=== PATIENT | male | born 1965 | race Caucasian/White ===

== ENCOUNTER 2023-06-23 10:15 | Emergency (ER) | payer OTHER, SELFPAY ==
[2023-06-23 10:19] VITALS: BP 175/100; PULSE 69; RESP 18; TEMP 36.4; O2SAT 98; BMI 34.0
--- NOTE | 2023-06-23 10:20 | ED.BACK1 ---
HPI - Back Pain/Injury General Chief Complaint: Back Pain/Injury Stated Complaint: BACK PAIN Time Seen by Provider: 06/23/23 10:19 History of Present Illness HPI Narrative: Patient presents emergency department complaining of left flank pain.She states the pain started yesterday. He became slightly nauseated but has not been vomiting. Pain worsened this morning. He denies any hematuria, dysuria. He has a history of kidney stone but states this has not felt like it. Last time he passed a stone was 5 years ago. He denies any abdominal pain, diarrhea, constipation. Patient denies any chest pain, shortness of breath.He denies any trauma. He denies any paresthesias, or weakness. Related Data Home Medications Medication Instructions Recorded Confirmed testosterone cypionate 200 mg/mL 200 mg IM .[id number] 06/23/23 06/23/23 intramuscular oil Previous Rx's Medication Instructions Recorded hydrocodone 5 mg-acetaminophen 325 1 tab PO Q6H PRN pain 5 days #20 06/23/23 mg tablet tabs ondansetron HCl 4 mg tablet 4 mg PO Q6H PRN nausea and 06/23/23 vomiting #10 tabs tamsulosin 0.4 mg capsule (Flomax) 0.4 mg PO DAILY #7 caps 06/23/23 Allergies Allergy/AdvReac Type Severity Reaction Status Date / Time No Known Drug Allergies Allergy Verified 06/23/23 10:21 Review of Systems ROS Status of ROS 10 or more systems reviewed and unremarkable except as noted in history and below Exam Narrative Exam Narrative: Nurses notes and vital signs reviewed and patient is not hypoxic. General: Nontoxic, Well-appearing and in no apparent distress. Skin: Warm, dry, no pallor noted. No Rash Head: Normocephalic, atraumatic. Neck: Supple, non-tender. Eye: Pupils are equal, round and EOMI. No scleral icterus. Ears, Nose, Mouth, and Throat: TM clear, no posterior oropharynx erythema or nasal mucosal hypertrophy, uvula is mid-line Oral mucosa is moist Cardiovascular: Regular Rate and Rhythm without murmur, gallop or rub. Respiratory: No accessory muscle use or respiratory distress. Lungs are clear to auscultation, no wheezing, rales or rhonchi Chest Wall: no tenderness Back: No midline thoracic or lumbar vertebral tenderness. No CVA tenderness Musculoskeletal: normal ROM, no calf or popliteal tenderness, no lower extremity edema/swelling GI: Abdomen is soft, non-distended. Normal bowel sounds. No masses appreciated. No tenderness to palpation. No rebound, guarding, or rigidity noted. Neurological: A&O x4. No cranial nerve dysfunction observed. No truncal ataxia. Moves all extremities. Sensation intact. Psychiatric: Cooperative and interactive. Normal mood and affect. Constitutional Vital Signs, click to edit/add: Last Vital Signs Temp 97.6 F 06/23/23 10:19 Pulse 69 06/23/23 10:19 Resp 18 06/23/23 10:19 BP 175/100 H 06/23/23 10:19 Pulse Ox 98 06/23/23 10:19 Course Vital Signs Vital signs: Vital Signs Temperature 97.6 F 06/23/23 10:19 Pulse Rate 69 06/23/23 10:19 Respiratory Rate 18 06/23/23 10:19 Blood Pressure 175/100 H 06/23/23 10:19 Pulse Oximetry 98 06/23/23 10:19 Temperature 97.6 F 06/23/23 10:19 Pulse Rate 69 06/23/23 10:19 Respiratory Rate 18 06/23/23 10:19 Blood Pressure 175/100 H 06/23/23 10:19 Pulse Oximetry 98 06/23/23 10:19 MDM - Back Pain/Injury MDM Narrative Medical decision making narrative: Patient afebrile and without dysuria. Labs studies were done and he has leukocytosis. Her and does not show any signs of infection. Patient was given 1 L normal saline, Toradol, and Zofran IV. All his symptoms resolved. His pain is well tolerated his tolerating by mouth. All results were discussed with patient. She will follow up with primary care doctor and a neurologist. Patient will strain the urine. He'll take Zofran, Flomax, and [place]. His advised develops any fever or is not tolerating by mouth, prednisone will control his to return to the emergency department. At this time the patient is without objective evidence of an acute process requiring hospitalization or inpatient management. The patient has remained hemodynamically stable. No additional indication for emergent studies at this time. I answered all questions. Discussed discharge instructions including standard anticipatory guidance and what should prompt a return to the emergency department, including if they get worse are not getting better or develops any new or concerning symptoms. I've given them specific time frame in which to follow-up, and who to follow-up with. The patient demonstrates understanding. Patient is nontoxic and stable for discharge with outpatient follow-up. This note was created with the assistance of a speech recognition program. Although the intention is to generate documents that actually reflects the content of the visit, no guarantees can be provided that every mistake has been identified and corrected by editing. Differential Diagnosis Differential diagnosis: Likely lumbar radiculopathy, renal colic and pyelonephritis Lab Data Attestation: I reviewed the patient's lab results. Labs: Lab Results 06/23/23 06/23/23 Range/Units 10:24 10:43 WBC 19.6 H (4.0-11.0) 10^3/uL RBC 5.66 (4.70-6.10) 10^6/uL Hgb 17.0 (14.0-18.0) g/dL Hct 51.3 (42.0-54.0) % MCV 90.6 (80.0-94.0) fL MCH 30.0 (25.9-34.0) pg MCHC 33.1 (29.9-35.2) g/dL RDW 12.2 (11.0-15.0) % Plt Count 318 (150-450) 10^3/uL MPV 9.3 L (9.5-13.5) fL Neut % (Auto) 82.5 H (43.0-75.0) % Lymph % (Auto) 6.6 L (20.5-60.0) % [place] % (Auto) 9.3 (1.7-12.0) % Eos % (Auto) 0.1 L (0.9-7.0) % Baso % (Auto) 0.4 (0.2-2.0) % Neut # (Auto) 16.2 H (1.4-6.5) 10^3/uL Lymph # (Auto) 1.3 (1.2-3.8) 10^3/uL [place] # (Auto) 1.8 H (0.3-0.8) 10^3/uL Eos # (Auto) 0.0 (0.0-0.7) 10^3/uL Baso # (Auto) 0.1 (0.0-0.1) 10^3/uL Abs Immat Gran (auto) 0.22 H (0.00-0.03) 10^3/uL Imm/Tot Granulo (auto) 1.1 H (0.0-0.5) % Sodium 137 (136-145) mmol/L Potassium 4.3 (3.5-5.1) mmol/L Chloride 102 (98-107) mmol/L Carbon Dioxide 26.5 (21.0-32.0) mmol/L Anion Gap 12.8 BUN 16.0 (7.0-18.0) mg/dL Creatinine 1.33 H (0.70-1.30) mg/dL Est GFR ( Amer) >60 (>=60) Est GFR (Non-Af Amer) 56 L (>=60) BUN/Creatinine Ratio 12.0 Glucose 135 H (74-106) mg/dL Lactate 1.1 (0.4-2.0) mmol/L Calcium 9.2 (8.5-10.1) mg/dL Total Bilirubin 0.9 (0.2-1.0) mg/dL AST 24 (15-37) U/L ALT 37 (16-63) U/L Alkaline Phosphatase 76 (46-116) U/L Total Protein 7.8 (6.4-8.2) g/dL Albumin 4.1 (3.4-5.0) g/dL Globulin 3.7 g/dL Albumin/Globulin Ratio 1.1 Urine Color Yellow (YELLOW) Urine Clarity Clear (CLEAR) Urine pH 5.0 (5.0-9.0) Ur Specific [place] >=1.030 A (1.005-1.025) Urine Protein Trace (NEG/TRACE) mg/dL Urine Glucose (UA) Negative (NEGATIVE) mg/dL Urine Ketones Negative (NEGATIVE) mg/dL Urine Occult Blood Small A (NEGATIVE) Urine Nitrite Negative (NEGATIVE) Urine Bilirubin Negative (NEGATIVE) Urine Urobilinogen 0.2 (0.2-1.0) EU/dL Ur Leukocyte Esterase Negative (NEGATIVE) Urine RBC 0-2 (0-2) #/HPF Urine WBC None seen (NONE SEEN) #/HPF Ur Squamous Epith Cells None seen (NONE/RARE) #/LPF Urine Crystals None seen (None Seen) #/HPF Urine Bacteria None seen (NONE SEEN) #/HPF Urine Casts None seen (NONE SEEN) #/LPF Urine Mucus Small A (NONE SEEN) Ur Culture Indicated? No Discharge Plan Discharge Chief Complaint: Back Pain/Injury Clinical Impression: Ureterolithiasis Patient Disposition: Home, Self-Care Time of Disposition Decision: 11:59 Condition: Good Mode of Transportation: Private Vehicle Prescriptions / Home Meds: New tamsulosin [Flomax] 0.4 mg capsule 0.4 mg PO DAILY Qty: 7 0RF hydrocodone-acetaminophen 5-325 mg tablet 1 tab PO Q6H PRN (Reason: pain) 5 Days Qty: 20 0RF ondansetron HCl 4 mg tablet 4 mg PO Q6H PRN (Reason: nausea and vomiting) Qty: 10 0RF No Action testosterone cypionate 200 mg/mL oil 200 mg IM .[id number] Instructions: How to Strain Your Urine (ED), Ureteral Stones (ED) Stand Alone Forms: Portal Instructions Referrals: JACKY UGARTE [Primary Care Provider] - 1 week Cait Pandey MD [Physician] - 1 week
--- NOTE | 2023-06-23 10:24 | CT_ITS ---
[address] [address] Patient Name: LYDIA TURNER MRN: [id number] date: 1965 Sex: M Assigned Patient Location: ER Current Patient Location: [facility] Accession/Order Number: [id number] Exam Date: 06/23/2023 10:36 Report Date: 06/23/2023 11:25 At the request of: DARIA RYAN Procedure: CT abdomen pelvis wo con CT abdomen pelvis wo con, 06/23/2023 10:36 AM EDT, OH001 INDICATION: flank pain COMPARISON: None.. TECHNIQUE: Helical images were obtained without intravenous contrast. Coronal and sagittal reconstructions were also generated. Dose reduction techniques were achieved by using automated exposure control and/or adjustment of mA and/or kV according to patient size and/or use of iterative reconstruction technique. Oral contrast: None. FINDINGS: The visualized portions of the lower thorax appear unremarkable. The liver is normal in size and attenuation. There is a 6 mm calculus in the gallbladder. No wall thickening or pericholecystic fluid is seen. The pancreas is within normal limits. The spleen appears unremarkable. The adrenal glands appear unremarkable. There is slight left perinephric stranding and mild left hydronephrosis, with a 4.5 mm calculus in the proximal ureter. There is a 3.5 cm cystic focus arising from the inferior pole the right kidney with question of an internal septation. The vasculature appears unremarkable. There is no pathologic retroperitoneal adenopathy. The urinary bladder appears unremarkable. No pelvic mass is identified. There is no evidence of pathologic pelvic adenopathy. There is no evidence of free air or free fluid. The bowel loops appear unremarkable. The appendix appears unremarkable. There are bilateral fat-containing inguinal hernias. The osseous structures appear unremarkable. CT/CT abdomen pelvis wo con IMPRESSION: There is mild left hydronephrosis with a 4 mm calculus in the proximal left ureter. There is a 3.5 cm cystic focus arising from the inferior pole of the right kidney with suspicion for an internal septation. Follow-up with renal ultrasound is recommended. Cholelithiasis is incidentally noted. Electronically authenticated by: VINCENT MENDEZ Date: 06/23/2023 11:25
[2023-06-23 10:34] LABS: Basophils Absolute Auto 0.1 10^3/uL (0.0-0.1); Basophils Percent Auto 0.4 % (0.2-2.0); Eosinophils Percent Auto 0.1 % (0.9-7.0); Hematocrit 51.3 % (42.0-54.0); Immature Granulocytes Abs Auto 0.22 10^3/uL (0.00-0.03); Immature Granulocytes Pct Auto 1.1 % (0.0-0.5); Lymphocytes Absolute Auto 1.3 10^3/uL (1.2-3.8); Lymphocytes Percent Auto 6.6 % (20.5-60.0); Mean Corpuscular HGB Conc 33.1 g/dL (29.9-35.2); Mean Corpuscular Volume 90.6 fL (80.0-94.0); Mean Platelet Volume 9.3 fL (9.5-13.5); Monocytes Absolute Auto 1.8 10^3/uL (0.3-0.8); Monocytes Percent Auto 9.3 % (1.7-12.0); Neutrophils Absolute Auto 16.2 10^3/uL (1.4-6.5); Neutrophils Percent Auto 82.5 % (43.0-75.0); Platelet Count 318 10^3/uL (150-450); Red Blood Count 5.66 10^6/uL (4.70-6.10); Red Cell Distribution Width 12.2 % (11.0-15.0); White Blood Count 19.6 10^3/uL (4.0-11.0)
[2023-06-23 10:35] LABS: Bilirubin Urine NEGATIVE (NEGATIVE); Blood Urine SMALL (NEGATIVE); Clarity Urine CLEAR (CLEAR); Color Urine YELLOW (YELLOW); Glucose Urine UA NEGATIVE (NEGATIVE); Ketones Urine NEGATIVE (NEGATIVE); Leukocyte Esterase Urine NEGATIVE (NEGATIVE); Nitrite Urine NEGATIVE (NEGATIVE); Protein Urine TRACE mg/dL (NEG/TRACE); Specific Gravity Urine >=1.030 (1.005-1.025); Urine Microscopic Indicated YES; Urobilinogen Urine 0.2 EU/dL (0.2-1.0)
[2023-06-23] MEDS: 0.9 % SODIUM CHLORIDE 1,000 ML 999 ML IV (10:37)
[2023-06-23] MEDS: ONDANSETRON PF 4 MG/2 ML VIAL IV (10:38)
[2023-06-23] MEDS: KETOROLAC TROMETHAMINE 30 MG/ML VIAL IVP (10:38)
[2023-06-23 10:40] LABS: RBC Urine 0-2 #/HPF (0-2); WBC Urine NONE SEEN #/HPF (NONE SEEN)
[2023-06-23 10:41] LABS: Bacteria Urine NONE SEEN #/HPF (NONE SEEN); Cast Seen? NONE SEEN #/LPF (NONE SEEN); Crystals Seen? None Seen #/HPF (None Seen); Mucus Urine SMALL (NONE SEEN); Squamous Epithelial Cell Urine NONE SEEN #/LPF (NONE/RARE); Urine Culture Indicated NO
[2023-06-23] MEDS: TAMSULOSIN HCL 0.4 MG CAPSULE PO (11:02)
[2023-06-23 11:11] LABS: Lactate/Lactic Acid 1.1 mmol/L (0.4-2.0)
[2023-06-23 11:17] LABS: Alanine Aminotransferase 37 U/L (16-63); Albumin Globulin Ratio 1.1; Albumin Level 4.1 g/dL (3.4-5.0); Alkaline Phosphatase 76 U/L (46-116); Anion Gap 12.8; Aspartate Amino Transferase 24 U/L (15-37); Bilirubin Total 0.9 mg/dL (0.2-1.0); Calcium 9.2 mg/dL (8.5-10.1); Carbon Dioxide 26.5 mmol/L (21.0-32.0); Chloride 102 mmol/L (98-107); Estimated GFR (African America >60 (>=60); Estimated GFR (Non-African Ame 56 (>=60); Globulin 3.7 g/dL; Glucose 135 mg/dL (74-106); Potassium 4.3 mmol/L (3.5-5.1); Sodium 137 mmol/L (136-145); Total Protein 7.8 g/dL (6.4-8.2)
[2023-06-23 12:05] VITALS: BP 156/98; PULSE 76; RESP 20; O2SAT 97
== END 2023-06-23 12:16 | disposition home or self-care (01) ==
PROVIDERS: Emergency Provider Emergency Medicine; PCP Internal Medicine
DX: N20.1 Calculus of ureter (principal); Z87.442 Personal history of urinary calculi
CPT/HCPCS: 36415; 74176; 80053; 81001; 83605; 85025; 96374; 96375; 99285

== ENCOUNTER 2023-08-18 15:12 | Emergency (ER) | payer OTHER, SELFPAY ==
[2023-08-18 15:16] VITALS: BP 130/91; PULSE 97; RESP 18; TEMP 36.5; O2SAT 96; BMI 34.2
--- NOTE | 2023-08-18 15:26 | ED.ABDPAIN1 ---
HPI - Abdominal Pain General Chief Complaint: Abdominal Pain Stated Complaint: Constipation Time Seen by Provider: 08/18/23 15:14 Source: patient and family Mode of arrival: walk-in Limitations: no limitations History of Present Illness HPI narrative: [age] sexual male presents to Emergency Department for low abdominal pain and possible constipation. He's had this for about three days. No fever or vomiting but he's been nauseous. He recently got back from vacation in [place]. No trauma no previous abdominal surgeries and he has no history of diverticulitis. Related Data Home Medications Medication Instructions Recorded Confirmed testosterone cypionate 200 mg/mL 200 mg IM .[id number] 06/23/23 06/23/23 intramuscular oil Previous Rx's Medication Instructions Recorded hydrocodone 5 mg-acetaminophen 325 1 tab PO Q6H PRN pain 5 days #20 06/23/23 mg tablet tabs ondansetron HCl 4 mg tablet 4 mg PO Q6H PRN nausea and 06/23/23 vomiting #10 tabs tamsulosin 0.4 mg capsule (Flomax) 0.4 mg PO DAILY #7 caps 06/23/23 ciprofloxacin HCl 500 mg tablet 500 mg PO Q12H #20 tabs 08/18/23 (Cipro) hydrocodone 5 mg-acetaminophen 325 1 tab PO Q6H PRN pain 5 days #20 08/18/23 mg tablet tabs metronidazole 500 mg tablet 500 mg PO TID #30 tabs 08/18/23 ondansetron 4 mg disintegrating 4 mg PO Q6H PRN nausea and 08/18/23 tablet vomiting #20 tabs Allergies Allergy/AdvReac Type Severity Reaction Status Date / Time No Known Drug Allergies Allergy Verified 06/23/23 10:21 Review of Systems ROS Narrative A ten point review of systems is negative except as noted above. Gastrointestinal Reports: abdominal pain and constipation PFSH PFSH Social History Smoking status: Never smoker Exam Narrative Exam Narrative: Nurses note and vital signs reviewed and patient is not hypoxic. General: The patient appears well and in no apparent distress. Patient is resting comfortably on cart. Skin: Warm, dry, no pallor noted. There is no rash noted. Head: Normocephalic, atraumatic Eye: Normal conjunctiva, no drainage Ears, Nose, Mouth, and Throat: oral mucosa is moist. Nares patent. Cardiovascular: Regular Rate and Rhythm Respiratory: Patient is in no distress, no accessory muscle use, lungs are clear to auscultation, no wheezing, rales or rhonchi Back: non-tender, no CVA tenderness bilaterally to percussion. GI: soft. Tenderness across the lower abdomen without masses or distention Musculoskeletal: The patient has no evidence of calf tenderness, no pitting edema, symmetrical pulses noted bilaterally Neurological: A&O, normal speech Psychiatric: Cooperative Constitutional Vital Signs, click to edit/add: Last Vital Signs Temp 97.7 F 08/18/23 15:16 Pulse 97 H 08/18/23 15:16 Resp 18 08/18/23 15:16 BP 130/91 08/18/23 15:16 Pulse Ox 96 08/18/23 15:16 O2 Del Method Room Air 08/18/23 15:16 Course Vital Signs Vital signs: Vital Signs Temperature 97.7 F 08/18/23 15:16 Pulse Rate 97 H 08/18/23 15:16 Respiratory Rate 18 08/18/23 15:16 Blood Pressure 130/91 08/18/23 15:16 Pulse Oximetry 96 08/18/23 15:16 Oxygen Delivery Method Room Air 08/18/23 15:16 Temperature 97.7 F 08/18/23 15:16 Pulse Rate 97 H 08/18/23 15:16 Respiratory Rate 18 08/18/23 15:16 Blood Pressure 130/91 08/18/23 15:16 Pulse Oximetry 96 08/18/23 15:16 Oxygen Delivery Method Room Air 08/18/23 15:16 MDM - Abdominal Pain MDM Narrative Medical decision making narrative: acute diverticulitis is identified, uncomplicated. He also has been passing a stone for at least the last month and now it's at the left UV junction. He is given IV Cipro and Flagyl here and prescribed Cipro and Flagyl for home as well as [place] and Zofran and he'll follow-up with his urologist in family doctor. Treatment diagnosis and follow up are discussed with the patient and his . Differential Diagnosis Differential diagnosis: Likely abdominal pain, calculus of kidney, constipation, diverticulitis, gastroenteritis and small bowel obstruction Medical Records Attestation: I reviewed the patient's medical records. Lab Data Attestation: I reviewed the patient's lab results. Labs: Lab Results 08/18/23 Range/Units 15:30 WBC 17.6 H (4.0-11.0) 10^3/uL RBC 5.47 (4.70-6.10) 10^6/uL Hgb 16.9 (14.0-18.0) g/dL Hct 50.6 (42.0-54.0) % MCV 92.5 (80.0-94.0) fL MCH 30.9 (25.9-34.0) pg MCHC 33.4 (29.9-35.2) g/dL RDW 12.5 (11.0-15.0) % Plt Count 288 (150-450) 10^3/uL MPV 10.1 (9.5-13.5) fL Neut % (Auto) 76.0 H (43.0-75.0) % Lymph % (Auto) 12.1 L (20.5-60.0) % [place] % (Auto) 9.2 (1.7-12.0) % Eos % (Auto) 1.5 (0.9-7.0) % Baso % (Auto) 0.5 (0.2-2.0) % Neut # (Auto) 13.4 H (1.4-6.5) 10^3/uL Lymph # (Auto) 2.1 (1.2-3.8) 10^3/uL [place] # (Auto) 1.6 H (0.3-0.8) 10^3/uL Eos # (Auto) 0.3 (0.0-0.7) 10^3/uL Baso # (Auto) 0.1 (0.0-0.1) 10^3/uL Abs Immat Gran (auto) 0.12 H (0.00-0.03) 10^3/uL Imm/Tot Granulo (auto) 0.7 H (0.0-0.5) % Sodium 135 L (136-145) mmol/L Potassium 3.6 (3.5-5.1) mmol/L Chloride 97 L (98-107) mmol/L Carbon Dioxide 26.6 (21.0-32.0) mmol/L Anion Gap 15.0 BUN 14.0 (7.0-18.0) mg/dL Creatinine 0.99 (0.70-1.30) mg/dL Est GFR ( Amer) >60 (>=60) Est GFR (Non-Af Amer) >60 (>=60) BUN/Creatinine Ratio 14.1 Glucose 113 H (74-106) mg/dL Calcium 9.6 (8.5-10.1) mg/dL Imaging Data CT scan - abdomen: Radiologist's impression: Procedure: CT abdomen pelvis w con EXAM: CT scan of the abdomen and pelvis using 100 mL of IV iodinated contrast. Dose reduction technique used: Automated exposure control and/or adjustment of the mA and/or kV according to patient size and/or use of iterative reconstruction technique. REASON FOR EXAM: low abd pain, WBC seventeen thousand COMPARISON: CT scan dated 06/23/2023 FINDINGS: Prominent fat stranding along the proximal sigmoid colon. No pericolonic fluid collection or extraluminal gas. Left ureterovesical junction 4 mm stone without associated hydronephrosis comments is likely a stone present in the proximal left ureter on 06/23/2023. Right renal cyst. Diffuse hepatic steatosis. Cholelithiasis. Colonic diverticulosis. Small fat-containing bilateral inguinal hernias. Normal appendix. No free fluid in the abdomen or pelvis. No free intraperitoneal air. No dilated or thickened loops of small bowel or colon. Liver, pancreas, spleen, bilateral kidneys, and bilateral adrenal glands are otherwise unremarkable. No lymphadenopathy in the abdomen or pelvis. Remainder unremarkable. IMPRESSION: 1. Acute sigmoid diverticulitis. 2. Left ureterovesical junction 4 mm stone without hydronephrosis. 3. Diffuse hepatic steatosis. Discharge Plan Discharge Chief Complaint: Abdominal Pain Clinical Impression: Diverticulitis, Ureterolithiasis Patient Disposition: Home, Self-Care Time of Disposition Decision: 17:17 Condition: Good Mode of Transportation: Private Vehicle Prescriptions / Home Meds: New hydrocodone-acetaminophen 5-325 mg tablet 1 tab PO Q6H PRN (Reason: pain) 5 Days Qty: 20 0RF ciprofloxacin HCl [Cipro] 500 mg tablet 500 mg PO Q12H Qty: 20 0RF metronidazole 500 mg tablet 500 mg PO TID Qty: 30 0RF ondansetron 4 mg tablet,disintegrating 4 mg PO Q6H PRN (Reason: nausea and vomiting) Qty: 20 0RF No Action testosterone cypionate 200 mg/mL oil 200 mg IM .[id number] tamsulosin [Flomax] 0.4 mg capsule 0.4 mg PO DAILY Qty: 7 0RF hydrocodone-acetaminophen 5-325 mg tablet 1 tab PO Q6H PRN (Reason: pain) 5 Days Qty: 20 0RF ondansetron HCl 4 mg tablet 4 mg PO Q6H PRN (Reason: nausea and vomiting) Qty: 10 0RF Instructions: Diverticulitis (ED) Stand Alone Forms: Portal Instructions Referrals: JACKY UGARTE [Primary Care Provider] - 1 week
--- NOTE | 2023-08-18 15:27 | XR_ITS ---
The [place] [id number] Patient Name: LYDIA TURNER MRN: [id number] date: 1965 Sex: M Assigned Patient Location: ER Current Patient Location: ER Accession/Order Number: [id number] Exam Date: 08/18/2023 15:50 Report Date: 08/18/2023 16:09 At the request of: RADHAMES SHEPARD Procedure: XR abdomen 1V XR abdomen 1V, 08/18/2023 3:50 PM EDT, OH001 INDICATION: low abdominal pain, possible constipation COMPARISON: CT from 06/23/2023. TECHNIQUE: 3 frontal views of the abdomen obtained. FINDINGS: The bowel gas pattern appears within normal limits. No suspicious calcifications are projected over the kidneys, ureters or bladder. No free peritoneal air is seen. The osseous and surrounding soft tissue structures appear within normal limits. XR/XR abdomen 1V IMPRESSION: Unremarkable bowel gas pattern. Electronically authenticated by: VINCENT MENDEZ Date: 08/18/2023 16:09
[2023-08-18 15:45] LABS: Basophils Absolute Auto 0.1 10^3/uL (0.0-0.1); Basophils Percent Auto 0.5 % (0.2-2.0); Eosinophils Absolute Auto 0.3 10^3/uL (0.0-0.7); Eosinophils Percent Auto 1.5 % (0.9-7.0); Hematocrit 50.6 % (42.0-54.0); Hemoglobin 16.9 g/dL (14.0-18.0); Immature Granulocytes Abs Auto 0.12 10^3/uL (0.00-0.03); Immature Granulocytes Pct Auto 0.7 % (0.0-0.5); Lymphocytes Absolute Auto 2.1 10^3/uL (1.2-3.8); Lymphocytes Percent Auto 12.1 % (20.5-60.0); Mean Corpuscular HGB Conc 33.4 g/dL (29.9-35.2); Mean Corpuscular Hemoglobin 30.9 pg (25.9-34.0); Mean Corpuscular Volume 92.5 fL (80.0-94.0); Mean Platelet Volume 10.1 fL (9.5-13.5); Monocytes Absolute Auto 1.6 10^3/uL (0.3-0.8); Monocytes Percent Auto 9.2 % (1.7-12.0); Neutrophils Absolute Auto 13.4 10^3/uL (1.4-6.5); Platelet Count 288 10^3/uL (150-450); Red Blood Count 5.47 10^6/uL (4.70-6.10); Red Cell Distribution Width 12.5 % (11.0-15.0); White Blood Count 17.6 10^3/uL (4.0-11.0)
[2023-08-18 15:53] LABS: BUN Creatinine Ratio 14.1; Calcium 9.6 mg/dL (8.5-10.1); Carbon Dioxide 26.6 mmol/L (21.0-32.0); Chloride 97 mmol/L (98-107); Estimated GFR (African America >60 (>=60); Estimated GFR (Non-African Ame >60 (>=60); Glucose 113 mg/dL (74-106); Potassium 3.6 mmol/L (3.5-5.1); Sodium 135 mmol/L (136-145)
--- NOTE | 2023-08-18 15:58 | CT_ITS ---
The [address] [address] Patient Name: LYDIA TURNER MRN: [id number] date: 1965 Sex: M Assigned Patient Location: ER Current Patient Location: ER Accession/Order Number: [id number] Exam Date: 08/18/2023 16:25 Report Date: 08/18/2023 16:51 At the request of: RADHAMES SHEPARD Procedure: CT abdomen pelvis w con EXAM: CT scan of the abdomen and pelvis using 100 mL of IV iodinated contrast. Dose reduction technique used: Automated exposure control and/or adjustment of the mA and/or kV according to patient size and/or use of iterative reconstruction technique. REASON FOR EXAM: low abd pain, WBC seventeen thousand COMPARISON: CT scan dated 06/23/2023 FINDINGS: Prominent fat stranding along the proximal sigmoid colon. No pericolonic fluid collection or extraluminal gas. Left ureterovesical junction 4 mm stone without associated hydronephrosis comments is likely a stone present in the proximal left ureter on 06/23/2023. Right renal cyst. Diffuse hepatic steatosis. Cholelithiasis. Colonic diverticulosis. Small fat-containing bilateral inguinal hernias. Normal appendix. No free fluid in the abdomen or pelvis. No free intraperitoneal air. No dilated or thickened loops of small bowel or colon. Liver, pancreas, spleen, bilateral kidneys, and bilateral adrenal glands are otherwise unremarkable. No lymphadenopathy in the abdomen or pelvis. Remainder unremarkable. CT/CT abdomen pelvis w con IMPRESSION: 1. Acute sigmoid diverticulitis. 2. Left ureterovesical junction 4 mm stone without hydronephrosis. 3. Diffuse hepatic steatosis. Electronically authenticated by: MAITE GUERRA Date: 08/18/2023 16:51
[2023-08-18] MEDS: METRONIDAZOLE/SODIUM CHLORIDE 500 MG/100 ML PREMIX 100 MG IV (17:07)
[2023-08-18] MEDS: CIPROFLOXACIN IN 5 % DEXTROSE 400 MG/200 ML PIGGYBACK IV (18:01)
== END 2023-08-18 19:01 | disposition home or self-care (01) ==
PROVIDERS: Emergency Provider Emergency Medicine; PCP Internal Medicine
DX: K57.32 Diverticulitis of large intestine without perforation or abscess without bleeding (principal); Z20.1 Contact with and (suspected) exposure to tuberculosis; Z79.899 Other long term (current) drug therapy
CPT/HCPCS: 36415; 74018; 74177; 80048; 85025; 96374; 96375; 99285; Q9967

== ENCOUNTER 2023-09-01 15:44 | Outpatient (OUT) | payer OTHER, SELFPAY ==
[2023-09-01 16:23] LABS: Alanine Aminotransferase 47 U/L (16-63); Albumin Level 4.2 g/dL (3.4-5.0); Alkaline Phosphatase 70 U/L (46-116); Anion Gap 9.5; Aspartate Amino Transferase 25 U/L (15-37); BUN Creatinine Ratio 12.1; Bilirubin Total 1.2 mg/dL (0.2-1.0); Calcium 9.1 mg/dL (8.5-10.1); Carbon Dioxide 31.5 mmol/L (21.0-32.0); Chloride 102 mmol/L (98-107); Chol HDL Ratio 5.2; Cholesterol 213 mg/dL (<=200); Estimated GFR (African America >60 (>=60); Estimated GFR (Non-African Ame >60 (>=60); Globulin 4.1 g/dL; Glucose 85 mg/dL (74-106); HDL Cholesterol 41 mg/dL (40-60); Sodium 139 mmol/L (136-145); Total Protein 8.3 g/dL (6.4-8.2); Triglycerides 117 mg/dL (<=150); VLDL CHOLESTEROL 23.4 mg/dL
[2023-09-01 16:48] LABS: Prostate Specific Antigen Scrn 1.54 ng/mL (<=4.00)
[2023-09-03 04:07] LABS: Testosterone 545 ng/dL (264-916)
== END 2023-09-01 15:45 | disposition home or self-care (01) ==
LOC: LAB 15:47
PROVIDERS: PCP Internal Medicine; Visit Provider Internal Medicine
DX: Z00.00 Encounter for general adult medical examination without abnormal findings (principal); Z12.5 Encounter for screening for malignant neoplasm of prostate; E78.1 Pure hyperglyceridemia; N20.0 Calculus of kidney; E29.1 Testicular hypofunction
CPT/HCPCS: 36415; 80053; 80061; 84403; G0103

== ENCOUNTER 2025-03-30 14:45 | Outpatient (OUT) | payer OTHER, SELFPAY ==
--- OUTSIDE RECORDS SUMMARY | 2025-03-29 14:30 | XMS_ITS | Encounter Summary ---
Author Organization [facility] Address [address] [place] [address] Care Team Providers Care Meat Specialist Name Role Phone Oral [place] MD Primary Care Provider [phone] Reason for Referral * Consultation (Routine) - Authorized Specialty Diagnoses / Procedures Referred By Contac t Referred To Contact Orthopaedic Surgery Diagnoses Injury of finger of right hand, initial encounter Madeline Erickson NP [address] [facility] [address] [place] [address] Phone: tel: fax: Roel [place] MD [address] [place] [address] [place] [address] Phone: tel: fax: Referral ID Status Reason Start Date Expiration Date Visits Requested Visits Authorized [id number] Authorized Specialty Services Required 03/29/2025 09/25/2025 1 1 Encounter Details Date Type Department Care Team (Late st Contact Info) Description 03/29/2025 2:30 PM EDT Office Visit [facility] [address] [facility] [address] [place] [address] Madeline Erickson NP [address] [facility] [address] [place], [place] [id number] Jammed finger (interphalangeal joint), initial encounter (Primary Dx); Injury of finger of right hand, initial encounter Social History Tobacco Use Types Packs/Day Years Used Date Smoking Tobacco: Never Smokeless Tobacco: Never Tobacco Cessation:Counseling Given: Yes Alcohol Use Standard Drinks/Week Comments Not Currently 0 (1 standard drink = 0.6 oz pur e alcohol) PHQ-2 Answer Date Recorded Patient Health Questionnaire-2 Score 0 03/29/2025 Sex and Gender Information Value Date Recorded Sex Assigned at Not on file Legal Sex Male 7:18 PM EDT Gender Identity Not on file Sexual Orientation Not on file documented as of this encounter Last Filed Vital Signs Vital Sign Reading Time Taken Comments Blood Pressure 136/82 03/29/2025 2:48 PM EDT Pulse 78 03/29/2025 2:48 PM EDT Temperature - - Respiratory Rate 16 03/29/2025 2:48 PM EDT Oxygen Saturation 95% 03/29/2025 2:48 PM EDT Inhaled Oxygen Concentration - - Weight 127 kg (280 lb 12.8 oz) 03/29/2025 2:48 P M EDT Height 190.5 cm (6' 3 ) 03/29/2025 2:48 PM EDT Body Mass Index 35.1 03/29/2025 2:48 PM EDT documented in this encounter Functional Status * Over the past 2 weeks, how often have you been bothered by any of the following problems? Question Answer Date of Assessment Author Little interest or pleasure in doing things Not at all 03/29/2025 2:42 PM EDT MAXIM IGLESIAS Feeling down, depressed, or hopeless Not at all 03/02 2:42 PM EDT MAXIM IGLESIAS Patient Health Questionnaire-2 Score 0 03/02 2:42 PM EDT MAXIM IGLESIAS documented as of this encounter Progress Notes * Madeline Erickson NP - 03/29/2025 2:30 PM EDT Images from the original note were not included. Subjective Patient ID: Markos Gilman is a 59 y.o. male who presents for finger pain. Markos presents today for pain with the middle finger on his RT hand. When he went to clean up some juice and his hand kept moving but the rag didn't move and he jammed the tip of the finger and heard it pop. This happened 3 days ago. Hand Pain The incident occurred 5 to 7 days ago. The incident occurred at home. Injury mechanism: jammed finger. The pain is present in the right fingers. The patient is experiencing no pain. Nothing aggravates the symptoms. He has tried immobilization and acetaminophen for the symptoms. The treatment provided no relief. Current Outpatient Medications on File Prior to Visit Medication Sig Dispense Refill indomethacin (Indocin) 50 MG capsule Take 50 mg by mouth in the morning and 50 mg in the evening. Take with meals. olmesartan (BENIcar) 20 MG tablet Take 1 tablet (20 mg) by mouth Daily 30 tablet 2 testosterone cypionate (Depo-Testosterone) 200 MG/ML injection Inject 1 mL (200 mg) into the shoulder, thigh, or buttocks every 14 (fourteen) days 2 mL 2 No current facility-administered medications on file prior to visit. I have reviewed and reconciled the history and medication list with the patient today. Allergies Allergen Reactions Lisinopril Cough Social History Tobacco Use Smoking status: Never Smokeless tobacco: Never Vaping Use Vaping status: Never Used Substance Use Topics Alcohol use: Not Currently Drug use: Defer Family History Problem Relation Name Age of Onset Cancer Father Past Medical History: Diagnosis Date Elbow fracture Foot fracture, left 2011 Foot neuroma Right rib fracture Past Surgical History: Procedure Laterality Date FOOT NEUROMA SURGERY Right TONSILLECTOMY Visit Vitals Smoking Status Never Review of Systems Constitutional: Negative. HENT: Negative. Eyes: Negative. Respiratory: Negative. Genitourinary: Negative. Neurological: Negative. Psychiatric/Behavioral: Negative. All other systems reviewed and are negative. Endocrine: Negative. Objective Physical Exam Vitals reviewed. Constitutional: Appearance: Normal appearance. HENT: Head: Normocephalic. Nose: Nose normal. Mouth/Throat: Mouth: Mucous membranes are moist. Pharynx: Oropharynx is clear. Eyes: Conjunctiva/sclera: Conjunctivae normal. Cardiovascular: Rate and Rhythm: Normal rate. Heart sounds: Normal heart sounds. Pulmonary: Effort: Pulmonary effort is normal. Breath sounds: Normal breath sounds. Musculoskeletal: Comments: Middle finger on rt hand swollen and tip of finger curved. Skin: General: Skin is warm and dry. Neurological: General: No focal deficit present. Mental Status: He is alert and oriented to person, place, and time. Psychiatric: Mood and Affect: Mood normal. Behavior: Behavior normal. Assessment/Plan Diagnoses and all orders for this visit: Jammed finger (interphalangeal joint), initial encounter - XR hand 3+ views right; Future Referral made to ortho Injury of finger of right hand, initial encounter - Ambulatory referral to Orthopaedic Surgery; Future Await xray. Referral sent to ortho. Will probably need an MRI No follow-ups on file. documented in this encounter Plan of Treatment Scheduled Orders Name Type Priority Associated Diagnoses Orde r Schedule XR hand 3+ views right Imaging Routine Jammed finger (interphalangeal joint), initial encounter Expected: 03/29/2025, Expires: 03/29/2026 Scheduled Referrals Name Type Priority Associated Diagnoses Order Schedule Ambulatory referral to Orthopaedic Surgery Outpatient Referral Routine Injury of finger of right hand, initial encounter Expected: 03/29/2025 (Approximate), Expires: 09/29/2025 documented as of this encounter Visit Diagnoses Diagnosis Jammed finger (interphalangeal joint), initial encounter- Primary Injury of finger of right hand, initial encounter documented in this encounter Care Teams Meat Specialist Relationship Specialty Start Date End Date Oral [place] MD [address] [place] [address] PCP - General Internal Medicine 03/09/23 documented as of this encounter
--- OUTSIDE RECORDS SUMMARY | 2025-03-30 14:52 | XMS_ITS | Encounter Summary ---
Author Organization [facility] Address [address] [place] [address] Care Team Providers Care Packager Or Packer And Weigher Name Role Phone Oral [place] MD Primary Care Provider Encounter Details Date Type Department Care Team (Latest Contact Info) Description 03/29/2025 Travel Social History Tobacco Use Types Packs/Day Years Used Date Smoking Tobacco: Never Smokeless Tobacco: Never Alcohol Use Standard Drinks/Week Comments Not Currently 0 (1 standard drink = 0.6 oz pur e alcohol) PHQ-2 Answer Date Recorded Patient Health Questionnaire-2 Score 0 03/29/2025 Sex and Gender Information Value Date Recorded Sex Assigned at Not on file Legal Sex Male 7:18 PM EDT Gender Identity Not on file Sexual Orientation Not on file documented as of this encounter Functional Status * Over the [...] MAXIM IGLESIAS documented as of this encounter Plan of Treatment Not on file documented as of this encounter Visit Diagnoses Not on filedocumented in this encounter Care Teams Packager Or Packer And Weigher Relationship Specialty Start Date End Date Oral [place] MD [address] [facility] [address] [place] [address] PCP - General Internal Medicine 03/09/23 documented as of this encounter
--- OUTSIDE RECORDS SUMMARY | 2025-03-30 14:52 | XMS_ITS | Encounter Summary ---
Author Organization [facility] Address [address] [place] [address] Care Team Providers Care Irrigation Supervisor Name Role Phone Oral [place] MD Primary Care Provider [phone] Encounter Details Date Type Department Care Team (Late st Contact Info) Description 09/02/2023 Abstract [facility] [address] [facility] 110 [place] [address] Oral [place] MD [address] [facility] [address] [place], [place] [id number] Social History Tobacco Use Types Packs/Day Years Used Date Smoking Tobacco: Never Smokeless Tobacco: Never Alcohol Use Standard Drinks/Week Comments Not Currently 0 (1 standard drink = 0.6 oz pur e alcohol) Sex and Gender Information Value Date Recorded Sex Assigned at Not on file Legal Sex Male 7:18 PM EDT Gender Identity Not on file Sexual Orientation Not on file documented as of this encounter Plan of Treatment Not on file documented as of this encounter Visit Diagnoses Not on filedocumented in this encounter Care Teams Irrigation Supervisor Relationship Specialty Start Date End Date Oral [place] MD [address] [facility] [address] [place] [address] PCP - General Internal Medicine 03/09/23 documented as of this encounter
--- OUTSIDE RECORDS SUMMARY | 2025-03-30 14:52 | XMS_ITS | Clinical Summary ---
Author Organization [facility] Address [address] [place] [address] Care Team Providers Care Licensed Clinical Social Worker Name Role Phone Oral [place] MD Primary Care Provider [phone] Allergies Active Allergy Reactions Criticality Noted Date Comments Lisinopril Cough Low 03/14/2025 Medications indomethacin (Indocin) 50 MG capsule Take 50 mg by mouth in the morning and 50 mg in the evening. Take with meals. Active olmesartan (BENIcar) 20 MG tabletIndication s:Primary hypertension (CMS/HCC) Take 1 tablet (20 mg) by mouth Daily 30 tablet 2 03/14/20 25 Active testosterone cypionate (Depo-Testostero ne) 200 MG/ML injectionIndicat ions:Androgen deficiency Inject 1 mL (200 mg) into the shoulder, thigh, or buttocks every 14 (fourteen) days 2 mL 2 03/14/20 25 025 Active indomethacin (Indocin) 50 MG capsuleIndicatio ns:Acute gout of left foot, unspecified cause Take 1 capsule (50 mg) by mouth in the morning and 1 capsule (50 mg) in the evening. Take with meals. 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 Inject 1 mL (200 mg) into the shoulder, thigh, or buttocks every 14 (fourteen) days 2 mL 2 12/07/19 25 025 Discontinued(Re order) indomethacin (Indocin) 50 MG capsuleIndicatio ns:Acute gout of left foot, unspecified cause TAKE 1 CAPSULE BY MOUTH IN THE MORNING AND EVENING WITH MEALS 60 capsule 5 03/05/20 25 025 Discontinued(Ot her) olmesartan (BENIcar) 20 MG tabletIndication s:Primary hypertension (CMS/HCC) Take 1 tablet (20 mg) by mouth Daily 30 tablet 2 03/14/20 025 Discontinued Active Problems Problem Noted Date Diagnosed Date 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 Diverticulosis 09/01/2023 Androgen deficiency 06/16/2023 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 Chronic cough 06/16/2023 Chronic rhinitis 06/16/2023 Hypertriglyceridemia 06/16/2023 LPRD (laryngopharyngeal reflux disease) 06/16/20 Nephrolithiasis 06/16/2023 Perirectal abscess 06/16/2023 Anxiety disorder 05/08/2009 Encounters Date Type Department Care Team Description 03/29/2025 2:30 PM EDT Office Visit [facility] [address] [facility] [address] [place] [id number] Madeline Erickson NP Jammed finger (interphalangeal joint), initial encounter (Primary Dx); Injury of finger of right hand, initial encounter 03/29/2025 Bamboo flowsheet [facility] [address] [facility] [address] [place] [id number] Madeline Erickson NP 03/29/2025 Travel 03/16/2025 Results Follow-Up [facility] [address] [facility] [address] [place] [address] Crystal Gold NP 03/14/2025 2:30 PM EDT Office Visit [facility] [address] [facility] [address] [place] [address] Shana Anthony PA Primary hypertension (CMS/HCC) (Primary Dx); Androgen deficiency; Effusion of left olecranon bursa; LILLINA-inhibitor cough; Memory changes; Decreased appetite 03/14/2025 Bamboo flowsheet [facility] [address] [facility] [address] [place] [id number] Shana Anthony PA 03/14/2025 Travel 03/03/2025 Refill [facility] [address] [facility] [address] [place] [address] Shana Anthony PA Acute gout of left foot, unspecified cause from Last 3 Months Family History Medical History Relation Name Comments Cancer Father Relation Name Status Comments Father Alive Mother Alive Social History Tobacco Use Types Packs/Day Years [...] on file Sexual Orientation Not on file Last Filed Vital Signs Vital Sign Reading [...] Mass Index 35.1 03/29/2025 2:48 PM EDT Plan of Treatment Health Maintenance Due Date Last Done Comments CT Colonography 1966 Colonoscopy 1966 FIT 1966 FOBT 1966 Sigmoidoscopy 1966 Influenza Vaccine (Season Ended) 2025 Postponed from 07/02/2025 (Other Medical Reasons) Colorectal Cancer Screening 06/25/2027 FIT-DNA 06/25/2027 06/25/2024, 09/0 05/2021, 07/08/2021, Additional history exists Procedures Procedure Name Priority Date/Time Associated Diagnosis Comments TESTOSTERONE FREE AND TOTAL Routine 03/08/2025 2:42 PM EDT Testosterone deficiency in male LAB COLOGUARD COLON CANCER SCREEN Routine 06/25/2024 8:30 AM EDT Encounter for screening for malignant neoplasm of colon from Last 3 Months or Most Recently Relevant to Health Maintenance Results * Testosterone, total and free (03/08/2025 2:42 PM EDT) TESTOSTERONE, TOTAL, [place] 599 250 - 1,100 ng/dL [facility] Comment: For additional information, please refer to http://education.PastBook/faq/ [email or web address] (This link is being provided for informational/ educational purposes only.) This test was developed and its analytical performance characteristics have been determined by [facility] [place], [place]. It has not been cleared or approved by the U.S. Food and Drug Administration. This assay has been validated pursuant to the CLIA regulations and is used for clinical purposes. TESTOSTERONE, FREE 94.6 35.0 - 155.0 pg/mL [facility] Comment: This test was developed and its analytical performance characteristics have been determined by [facility] [place], [place]. It has not been cleared or approved by the U.S. Food and Drug Administration. This assay has been validated pursuant to the CLIA regulations and is used for clinical purposes. Blood Venous blood specimen / Unknown 03/08/2025 2:42 PM EDT 03/08/2025 2:42 PM EDT Narrative Resulting Agency Comment Performing Organization Information Site ID: AMD Name: [facility] Address: [address] [place] [address] [place] [address] Director: Pola Recinos M.D.,PhD us [place] NP LAB BLOOD ORDERABLES Final Resul t [facility] * Cologuard?? colon cancer screening (06/25/2024 8:30 AM EDT) NONINV COLON CA DNA+OCC BLD SCRN STL-IMP Negative Negative 07/01/2024 10:32 AM EDT [facility] (CLIA #:[id number]) Comment: NEGATIVE TEST RESULT. A negative Cologuard result indicates a low likelihood that a colorectal cancer (CRC) or advanced adenoma (adenomatous polyps with more advanced pre-malignant features) is present. The chance that a person with a negative Cologuard test has a colorectal cancer is less than 1 in 1500 (negative predictive value >99.9%) or has an advanced adenoma is less than 5.3% (negative predictive value 94.7%). These data are based on a prospective cross-sectional study of 10,000 individuals at average risk for colorectal cancer who were screened with both Cologuard and colonoscopy. (Heather Johnson et al, N Engl J Med 2014;370(14):3010-1706) The normal value (reference range) for this assay is negative. COLOGUARD RE-SCREENING RECOMMENDATION: Periodic colorectal cancer screening is an important part of preventive healthcare for asymptomatic individuals at average risk for colorectal cancer. Following a negative Cologuard result, the [place] Cancer Society and U.S. Multi-Society Task Force screening guidelines recommend a Cologuard re-screening interval of 3 years. References: [place] [employer] Guideline for Colorectal Cancer Screening: https://www.cancer.org/cancer/unxkp-ctmzry-dboron/igcggygxl-vvcodikwn-kwevigc/ac s-rec ommendations.html.; Ceasar YORK, Ace CR, Josr WhatleyK, Colorectal Cancer Screening: Recommendations for Physicians and Patients from the U.S. Multi-Society Task Force on Colorectal Cancer Screening , Am J Gastroenterology 2017; 112:4461-1794. TEST DESCRIPTION: Composite algorithmic analysis of stool DNA-biomarkers with hemoglobin immunoassay. Quantitative values of individual biomarkers are not reportable and are not associated with individual biomarker result reference ranges. Cologuard is intended for colorectal cancer screening of adults of either sex, 45 years or older, who are at average-risk for colorectal cancer (CRC). Cologuard has been approved for use by the U.S. FDA. The performance of Cologuard was established in a cross sectional study of average-risk adults aged 50-84. Cologuard performance in patients ages 45 to 49 years was estimated by sub-group analysis of near-age groups. Colonoscopies performed for a positive result may find as the most clinically significant lesion: colorectal cancer [4.0%], advanced adenoma (including sessile serrated polyps greater than or equal to 1cm diameter) [20%] or non- advanced adenoma [31%]; or no colorectal neoplasia [45%]. These estimates are derived from a prospective cross-sectional screening study of 10,000 individuals at average risk for colorectal cancer who were screened with both Cologuard and colonoscopy. (Heather Hernandez al, N Engl J Med 2014;370(14):5806-4388.) Cologuard may produce a false negative or false positive result (no colorectal cancer or precancerous polyp present at colonoscopy follow up). A negative Cologuard test result does not guarantee the absence of CRC or advanced adenoma (pre-cancer). The current Cologuard screening interval is every 3 years. ([place] [employer] Society and U.S. Multi-Society Task Force). Cologuard performance data in a 10,000 patient pivotal study using colonoscopy as the reference method can be accessed at the following location: www.[employer].Im[employer] Advantage/results. Additional description of the Cologuard test process, warnings and precautions can be found at www.cologuard.com. Stool specimen (specimen) 06/25/2024 8:30 AM EDT 06/28/2024 8:03 AM EDT us Oral [place] MD LAB MOLECULAR DIAGNOSTICS [facility] Final Result .[employer] (CLIA #:[id number]) [address] [place] [address], [facility] (CLIA #:[id number]) [address] [place] [address] from Last 3 Months or Most Recently Relevant to Health Maintenance Insurance [employer] Care Teams Licensed Clinical Social Worker Relationship Specialty Start Date End Date Oral [place] MD [address] [facility] [address] [place] [address] PCP - General Internal Medicine 03/09/23
--- OUTSIDE RECORDS SUMMARY | 2025-03-30 14:52 | XMS_ITS | Encounter Summary ---
Author Organization [facility] Address [address] [place] [address] Care Team Providers Care Tv News Director Name Role Phone Oral [place] MD Primary Care Provider [phone] Encounter Details Date Type Department Care Team (Late Contact Info) Description 08/19/2023 Orders Only [facility] [address] [facility] [address] [place] [address] A, Unknown Practice [address] [place], [place] [phone] Social History Tobacco Use Types Packs/Day Years Used Date Smoking Tobacco: Never Assessed Sex and Gender Information Value Date Recorded Sex Assigned at Not on file Legal Sex Male 7:18 PM EDT Gender Identity Not on file Sexual Orientation Not on file documented as of this encounter Plan of Treatment Not on file documented as of this encounter Procedures Procedure Name Priority Date/Time Associated Diagnosis Comments CT ABDOMEN & PELVIS WO Routine 08/18/2023 12:01 PM EDT documented in this encounter Results * CT ABDOMEN & PELVIS WO (08/18/2023 12:01 PM EDT) Anatomical Region Laterality Modality Radiographic Carmen ging us Unknown Practice A IMG XR PROCEDURES Final Resul t documented in this encounter Visit Diagnoses Not on filedocumented in this encounter Care Teams Tv News Director Relationship Specialty Start Date End Date Oral [place] MD [address] [place] [address] [place] [address] PCP - General Internal Medicine 03/09/23 documented as of this encounter
--- OUTSIDE RECORDS SUMMARY | 2025-03-30 14:52 | XMS_ITS | Encounter Summary ---
Author Organization [facility] Address [address] [facility] [place] [address] Care Team Providers Care Straw Hat Presser Name Role Phone Oral [place] MD Primary Care Provider [phone] Encounter Details Date Type Department Care Team (Late st Contact Info) Description 03/16/2025 Results Follow-Up [facility] [address] [facility] [address] [place] [phone] Crystal Gold, LAUNDRY ROUTEMAN [address] [place] [address] [place], [place] [phone] Social History Tobacco Use Types Packs/Day Years Used Date Smoking Tobacco: Never Smokeless Tobacco: Never Alcohol Use Standard Drinks/Week Comments Not Currently 0 (1 standard drink = 0.6 oz pur e alcohol) PHQ-2 Answer Date Recorded Patient Health Questionnaire-2 Score 0 03/14/2025 Sex and Gender Information Value Date Recorded Sex Assigned at Not on file Legal Sex Male 7:18 PM EDT Gender Identity Not on file Sexual Orientation Not on file documented as of this encounter Plan of Treatment Not on file documented as of this encounter Visit Diagnoses Not on filedocumented in this encounter Care Teams Straw Hat Presser Relationship Specialty Start Date End Date Oral [place] MD [address] [facility] [address] [place], [place] [id number] PCP - General Internal Medicine 03/09/23 documented as of this encounter
--- OUTSIDE RECORDS SUMMARY | 2025-03-30 14:52 | XMS_ITS | Encounter Summary ---
Author Organization [facility] Address [address] [place] [address] Care Team Providers Care Kiln Door Builder Name Role Phone Oral [place] MD Primary Care Provider [phone] Encounter Details Date Type Department Care Team (Late st Contact Info) Description 09/03/2023 Abstract [facility] 112 [facility] 110 [place] [address] Oral [place] MD 112 [facility] 110 [place], [place] [id number] Social History Tobacco Use Types Packs/Day Years [...] on filedocumented in this encounter Care Teams Kiln Door Builder Relationship Specialty Start Date End Date Oral [place] MD 112 [facility] [address] [place] [address] PCP - General Internal Medicine 03/09/23 documented as of this encounter
--- OUTSIDE RECORDS SUMMARY | 2025-03-30 14:52 | XMS_ITS | Clinical Summary ---
Author Organization [facility] Address [address] [place] [address] Care Team Providers Care Documentation Liaison Name Role Phone Oral Shelby MD Primary Care Provider [phone] Allergies No known active allergies Medications No known medications Active Problems No known active problems Family History Medical History Relation Name Comments Cancer Brother Cancer Father Heart Disease Father Relation Name Status Comments Brother Father Alive Mother Alive Social History Tobacco Use Types Packs/Day Years Used Date Smoking Tobacco: Never Alcohol Use Standard Drinks/Week Comments Yes 0 (1 standard drink = 0.6 oz pur e alcohol) occasional Sex and Gender Information Value Date Recorded Sex Assigned at Not on file Legal Sex Male 10:19 AM EDT Gender Identity Not on file Sexual Orientation Not on file Last Filed Vital Signs Vital Sign Reading Time Taken Comments Blood Pressure 140/86 04/27/2016 4:16 PM EDT Pulse - - Temperature 36.6 C (97.9 F) 04/27/2016 4:16 PM EDT Respiratory Rate - - Oxygen Saturation - - Inhaled Oxygen Concentration - - Weight 118.8 kg (262 lb) 04/27/2016 4:16 PM EDT Height 190.5 cm (6' 3 ) 04/27/2016 4:16 PM EDT Body Mass Index 32.75 04/27/2016 4:16 PM EDT Plan of Treatment Not on file Insurance [employer] Care Teams Documentation Liaison Relationship Specialty Start Date End Date Oral Shelby MD PCP - General Internal Medicine 04/14/16
--- OUTSIDE RECORDS SUMMARY | 2025-03-30 14:52 | XMS_ITS | Encounter Summary ---
Author Organization [facility] Address [address] [place] [address] Care Team Providers Care Tower Director Name Role Phone Oral Shelby MD Primary Care Provider [phone] Encounter Details Date Type Department Care Team (Late Contact Info) Description 06/23/2023 Orders Only [facility] [address] [place] [address] A, Unknown Practice [address] [place], [place] [id number] Social History Tobacco Use Types Packs/Day Years [...] Comments CT ABDOMEN & PELVIS WO Routine 06/23/2023 12:54 PM EDT documented in this encounter Results * CT ABDOMEN & PELVIS WO (06/23/2023 12:54 PM EDT) Anatomical Region Laterality Modality Radiographic Carmen ging us Unknown Practice A IMG XR PROCEDURES Final Resul t documented in this encounter Visit Diagnoses Not on filedocumented in this encounter Care Teams Tower Director Relationship Specialty Start Date End Date Oral Shelby MD [address] [place] [address] PCP - General Internal Medicine 03/09/23 documented as of this encounter
--- OUTSIDE RECORDS SUMMARY | 2025-03-30 14:52 | XMS_ITS | Encounter Summary ---
Author Organization [facility] Address [address] [facility] [place] [address] Care Team Providers Care [employer] Nurse Name Role Phone Oral Shelby MD Primary Care Provider Encounter Details Date Type Department Care Team (Late st Contact Info) Description 03/29/2025 Bamboo flowsheet [facility] [address] [place] [id number] Madeline Erickson [employer]PRESENT[employer] [address] [place], [place] [id number] Social History Tobacco Use Types Packs/Day Years [...] on filedocumented in this encounter Care Teams [employer] Nurse Relationship Specialty Start Date End Date Oral Shelby MD [address] [place], [place] [id number] PCP - General Internal Medicine 03/09/23 documented as of this encounter
--- NOTE | 2025-03-30 14:54 | XR_ITS ---
The [address] [address] Patient Name: LYDIA TURNER MRN: [id number] date: 1965 Sex: M Assigned Patient Location: [facility] Current Patient Location: [facility] Accession/Order Number: [id number] Exam Date: 03/30/2025 15:29 Report Date: 03/30/2025 15:42 At the request of: LALO LESLIE Procedure: XR hand RT min 3V 3 views right hand plain film COMPARISON: None HISTORY: Right third digit injury 5 days ago. ACUTE FINDINGS: A tiny bony density in the volar aspect of the second middle phalanx, may suggest a volar plate fracture likely remote. No acute displaced fracture of the third digit. DEGENERATIVE CHANGE: Unremarkable SOFT TISSUE FINDINGS: Unremarkable JOINT EFFUSION: None POSTOP CHANGES: None BONY MINERALIZATION: Adequate XR/XR hand RT min 3V IMPRESSION: No acute displaced fracture of the third digit. Impression dictated by: Javier Ghotra M.D. 03/30/2025 3:42 PM Dictation Location: [place] [address] Electronically authenticated by: [id number] Y Date: 03/30/2025 15:42
--- OUTSIDE RECORDS SUMMARY | 2025-03-30 15:08 | XMS_ITS | CCD ---
Author Organization [facility] Care Team Providers Care Recycle Coordinator Name Role Phone Oral Shelby MD Primary Care Provider SHANA ANTHONY Attending CRYSTAL Chau Attending Unavailable CRYSTAL PATE Attending CRYSTAL Chau Attending Unavailable Allergies Allergy Classification Reported Allergen(s) Allergy Type Date of Onset Reaction(s) Facility (5 sources) Lisinopril Propensity to adverse reactions 5 Cough [facility] Medications Current Medications Medication Drug Class(es) Dates Sig (Normalized) Sig (Original) methylPREDNISolone (2 sources) Corticosteroid Start: 5 End: 5 methylPREDNISolone (Medrol Dospak) 4 MG tablets Indications: Hematoma of right elbow Follow schedule on package instructions 21 tablet 12/07/2024 12/14/2024 Active olmesartan medoxomil 20 mg oral tablet (7 sources) Angiotensin 2 Receptor Elisa Start: 5 End: 5 take 1 tablet by mouth once daily olmesartan (BENIcar) 20 MG tablet Indications: Primary hypertension (CMS/HCC) Take 1 tablet (20 mg) by mouth Daily 30 tablet 2 03/14/2025 Active 1 ml testosterone cypionate 200 mg/ml injection (20 sources) Androgen Start: 4 End: 5 testosterone cypionate (Depo-Testosterone) 100 MG/ML injection 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 Inject 1 mL (100 mg) into the shoulder, thigh, or buttocks every 14 (fourteen) days 2 mL 2 08/31/2024 03/14/2025 Discontinued (Other) Start: 12-22-2023 End: 06-12-2025 testosterone cypionate (Depo -Testosterone) 200 MG/ML injection Indications: Androgen deficiency Inject 1 mL (200 mg) into the shoulder, thigh, or buttocks every 14 (fourteen) days 2 mL 2 03/14/2025 06/12/2025 Active Completed/Discontinued Medications Medication Drug Class(es) Dates Sig (Normalized) Sig (Original) amoxicillin 875 mg / clavulanate 125 mg oral tablet (4 sources) Penicillin-class Antibacterial Start: 08-16-2024 End: 08-31-2024 take 1 tablet by mouth in the morning amoxicillin-clavul anate (Augmentin) 875-125 MG tablet Indications: Acute recurrent frontal sinusitis Take 1 tablet (875 mg) by mouth in the morning and 1 tablet (875 mg) before bedtime. Do all this for 10 days. 20 tablet 08/16/2024 08/31/2024 Discontinued atorvastatin 20 mg oral tablet (5 sources) HMG-CoA Reductase Inhibitor Start: 08-31-2024 End: 12-07-2024 take 1 tablet by mouth once daily atorvastatin (Lipitor) 20 MG tablet Indications: Dyslipidemia (CMS/HCC) Take 1 tablet (20 mg) by mouth Daily 30 tablet 2 08/31/2024 12/07/2024 Discontinued indomethacin 50 mg oral capsule (17 sources) Nonsteroidal Anti-inflammatory Drug Start: 03-05-2025 End: 03-14-2025 take 1 capsule by mouth at mealtime indomethacin (Indocin) 50 MG capsule Indications: Acute gout of left foot, unspecified cause TAKE 1 CAPSULE BY MOUTH IN THE MORNING AND EVENING WITH MEALS 60 capsule 5 03/05/2025 03/14/2025 Discontinued (Other) Start: 06-05-2024 End: 08-31-2024 take 1 capsule by mouth in the morning indomethacin (Indocin) 50 MG capsule Indications: Acute gout of left foot, unspecified cause Take 1 capsule (50 mg) by mouth in the morning and 1 capsule (50 mg) in the evening. Take with meals. 60 capsule 5 08/31/2024 Active lisinopril 10 mg oral tablet (11 sources) Angiotensin Converting Enzyme Inhibitor Start: 08-16-2024 End: 12-05-2025 take 1 tablet by mouth once daily lisinopril 10 MG tablet Indications: Hypertension, unspecified type (CMS/HCC) TAKE 1 TABLET (10 MG) BY MOUTH DAILY. 30 tablet 3 12/05/2024 03/14/2025 Discontinued (Side effects) Problems Active Problems Problem Classification Problem Date Documented Date Episodic/Chronic Anxiety disorders (14 sources) Anxiety disorder; Translations: [Anxiety disorder, unspecified] Onset: 05-08-2009 06-16-2023 Chronic Diabetes mellitus without complication (2 sources) Abnormal glucose tolerance test; Translations: [Other abnormal glucose] 08-16-2024 Episodic Disorders of lipid metabolism (20 sources) Hypertriglyceridemia; Translations: [Pure hyperglyceridemia] Onset: 06-16-2023 08-16-2024 Chronic Diverticulosis and diverticulitis (14 sources) Diverticular disease; Translations: [Diverticulosis of intestine, part unspecified, without perforation or abscess without bleeding] Onset: 09-01-2023 09-01-2023 Chronic Esophageal disorders (14 sources) Laryngopharyngeal reflux; Translations: [Gastro-esophageal reflux disease without esophagitis] Onset: 06-16-2023 06-16-2023 Chronic Essential hypertension (10 sources) Hypertensive disorder; Translations: [Essential (primary) hypertension] 08-16-2024 Chronic Genitourinary symptoms and ill-defined conditions (2 sources) Nocturia; Translations: [Nocturia] 08-16-2024 Episodic Gout and other crystal arthropathies (15 sources) 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; Translations: [Idiopathic chronic gout, multiple sites, without tophus (tophi)] Onset: 03-15-2024 03-15-2024 Chronic Other endocrine disorders (6 sources) Hypotestosteronism; Translations: [Testicular hypofunction] 08-16-2024 Chronic Other endocrine disorders (16 sources) Deficiency of testosterone biosynthesis; Translations: [Testicular hypofunction] Onset: 06-16-2023 06-16-2023 Chronic Other injuries and conditions due to external causes (2 sources) Injury of finger; Translations: [Unspecified injury of unspecified wrist, hand and finger(s), initial encounter] 03-29-2025 Episodic Other injuries and conditions due to external causes (2 sources) Injury of finger of right hand; Translations: [Unspecified injury of right wrist, hand and finger(s), initial encounter] 03-29-2025 Episodic Other lower respiratory disease (2 sources) Angiotensin-converting- enzyme inhibitor adverse reaction; Translations: [LILLIAN-inhibitor cough] 03-14-2025 Episodic Other non-traumatic joint disorders (2 sources) Effusion of olecranon bursa of left elbow; Translations: [Effusion, left elbow] 03-14-2025 Episodic Other nutritional; endocrine; and metabolic disorders (2 sources) Decrease in appetite; Translations: [Anorexia] 03-14-2025 Episodic Other screening for suspected conditions (not mental disorders or infectious disease) (2 sources) Patient encounter status; Translations: [Encounter for screening for malignant neoplasm of prostate] 08-16-2024 Episodic Other upper respiratory disease (14 sources) Chronic rhinitis; Translations: [Chronic rhinitis] Onset: 06-16-2023 06-16-2023 Chronic Other upper respiratory infections (2 sources) Acute recurrent frontal sinusitis; Translations: [Acute frontal sinusitis] 08-16-2024 Episodic Residual codes; unclassified (4 sources) Reduced libido; Translations: [Decreased libido] 09-10-2024 Episodic Residual codes; unclassified (2 sources) Memory impairment; Translations: [Other amnesia] 03-14-2025 Episodic Superficial injury; contusion (2 sources) Contusion of right elbow, initial encounter; Translations: [Contusion of elbow] 12-07-2024 Episodic Past or Other Problems Problem Classification Problem Date Documented Da te Episodic/Chronic Anal and rectal conditions (14 sources) Perirectal abscess; Translations: [Rectal abscess] Onset: 06-16-2023 06-16-2023 Episodic Calculus of urinary tract (14 sources) Kidney stone; Translations: [Calculus of kidney] Onset: 06-16-2023 06-16-2023 Episodic Diseases of mouth; excluding dental (14 sources) Burning mouth syndrome ; Translations: [Glossodynia] Onset: 06-16-2023 06-16-2023 Episodic Other lower respiratory disease (14 sources) Chronic cough; Translations: [Chronic cough] Onset: 06-16-2023 06-16-2023 Episodic Unclassified (2 sources) Injury of finger of right hand 03-29-2025 Results Test Name Value Interpretation Reference Range Facil ity TESTOSTERONE, FREE (DIALYSIS ) AND TOTAL,MSon 03-14-2025 TESTOSTERONE, FREE 94.6 pg/mL Normal 35.0-155.0 [employer] Comment on above: Result Comment: This test was developed and its analytical performance characteristics have been determined by [employer] [place]. It has not been cleared or approved by the U.S. Food and Drug Administration. This assay has been validated pursuant to the CLIA regulations and is used for clinical purposes. Performed By: #### 3 [id number] #### [facility] [id number] [facility] [place], [place] Gyroscope Repairer: Pola Recinos M.D.,PhD TESTOSTERONE, TOTAL, MS 599 ng/dL Normal 250-1100 [facility] Comment on above: Result Comment: For additional information, please refer to http://education.MapMyID/faq/ RqnkcHygykfgdnkmpJWLWXPJMR611 (This link is being provided for informational/ educational purposes only.) This test was developed and its analytical performance characteristics have been determined by [employer] [place]. It has not been cleared or approved by the U.S. Food and Drug Administration. This assay has been validated pursuant to the CLIA regulations and is used for clinical purposes. Performed By: #### 3 6170 #### [employer]/[place] [id number] [facility] [place], [place] Gyroscope Repairer: Pola Recinos M.D.,PhD TESTOSTERONE, FREE (DIALYSIS ) AND TOTAL,MSon 11-26-2024 TESTOSTERONE, FREE 80.8 pg/mL Normal 35.0-155.0 [facility] Comment on above: Order Comment: FASTI NG:NO FASTING: NO Result Comment: This test was developed and its analytical performance characteristics have been determined by [employer] [place]. It has not been cleared or approved by the U.S. Food and Drug Administration. This assay has been validated pursuant to the CLIA regulations and is used for clinical purposes. Performed By: #### 3 6170 #### [employer]/[place] [id number] [facility] [place], [place] Gyroscope Repairer: Pola Recinos M.D.,PhD TESTOSTERONE, TOTAL, MS 459 ng/dL Normal 250-1100 [facility] Comment on above: Order Comment: FASTI NG:NO FASTING: NO Result Comment: For additional information, please refer to http://education.[employer].UltiZen/faq/ WotfyWjcskjblpcwaEPVSOSBKA237 (This link is being provided for informational/ educational purposes only.) This test was developed and its analytical performance characteristics have been determined by [employer] [place]. It has not been cleared or approved by the U.S. Food and Drug Administration. This assay has been validated pursuant to the CLIA regulations and is used for clinical purposes. Performed By: #### 3 [id number] #### [facility] [address] [facility] [place], [place] Gyroscope Repairer: Pola Recinos M.D.,PhD CBC (INCLUDES DIFF/PLT)on Basophils (Bld) [#/Vol] 0.063 10*3/uL Normal 0-200 [facility] Comment on above: Performed By: #### 7 600, 5363, 22569, 6399 #### [facility] [address], [address] [place] [address] Gyroscope Repairer: Andrew Wadsworth MD Basophils/100 WBC (Bld) 0.7 % Normal [facility] Comment on above: Performed By: #### 7 600, 5363, 64574, 6399 #### [facility] [address], [address] [place] [address] Gyroscope Repairer: Andrew Wadsworth MD Eosinophils (Bld) [#/Vol] 0.405 10*3/uL Normal 15-500 [facility] Comment on above: Performed By: #### 7 600, 5363, 25180, 6399 #### [facility] [address], [address] [place] [address] Gyroscope Repairer: Andrew Wadsworth MD Eosinophils/100 WBC (Bld) 4.5 % Normal [facility] Comment on above: Performed By: #### 7 600, 5363, 08491, 6399 #### [facility] [address], [address] [place] [address] Gyroscope Repairer: Andrew Wadsworth MD Erythrocyte distribution width (RBC) [Ratio] 11.7 % Normal 11.0-15.0 [facility] Comment on above: Performed By: #### 7 600, 5363, 09548, 6399 #### [facility] of [address], [address] [place] [address] Gyroscope Repairer: Andrew Wadsworth MD Hematocrit (Bld) [Volume fraction] 46.8 % Normal 38.5-50.0 [facility] Comment on above: Performed By: #### 7 600, 5363, 74432, 6399 #### [facility] of [address], [address] [place] [address] Gyroscope Repairer: Andrew Wadsworth MD Hemoglobin (Bld) [Mass/Vol] 16.4 g/dL Normal 13.2-17.1 [facility] Comment on above: Performed By: #### 7 600, 5363, 46158, 6399 #### [facility] of [address], [address] [place] [address] Gyroscope Repairer: Andrew Wadsworth MD Lymphocytes (Bld) [#/Vol] 2.475 10*3/uL Normal 850-3900 [facility] Comment on above: Performed By: #### 7 600, 5363, 65521, 6399 #### [facility] of [place] [address] Gyroscope Repairer: Andrew Wadsworth MD Lymphocytes/100 WBC (Bld) 27.5 % Normal [facility] Comment on above: Performed By: #### 7 600, 5363, 67343, 6399 #### [facility] of [address], [address] [place] [address] Gyroscope Repairer: Andrew Wadsworth MD MCH (RBC) [Entitic mass] 32.2 pg Normal 27.0-33.0 [facility] Comment on above: Performed By: #### 7 600, 5363, 21218, 6399 #### [facility] of [place] [address] Gyroscope Repairer: Andrew Wadsworth MD MCHC (RBC) [Mass/Vol] 35.0 g/dL Normal 32.0-36.0 [facility] Comment on above: Result Comment: For adults, a slight decrease in the calculated MCHC value (in the range of 30 to 32 g/dL) is most likely not clinically significant; however, it should be interpreted with caution in correlation with other red cell parameters and the patient's clinical condition. Performed By: #### 7 600, 5363, 91106, 6399 #### [facility] [place] [address] Gyroscope Repairer: Andrew Wadsworth MD MCV (RBC) [Entitic vol] 91.8 fL Normal 80.0-100.0 [facility] Comment on above: Performed By: #### 7 600, 5363, 08070, 6399 #### [facility] [place] [address] Gyroscope Repairer: Andrew Wadsworth MD Monocytes (Bld) [#/Vol] 0.936 10*3/uL Normal 200-950 [facility] Comment on above: Performed By: #### 7 600, 5363, 18962, 6399 #### [facility] [place] [address] Gyroscope Repairer: Andrew Wadsworth MD Monocytes/100 WBC (Bld) 10.4 % Normal [facility] Comment on above: Performed By: #### 7 600, 5363, 34101, 6399 #### [facility] [place] [address] Gyroscope Repairer: Andrew Wadsworth MD Neutrophils (Bld) [#/Vol] 5.121 10*3/uL Normal 6276-7957 [facility] Comment on above: Performed By: #### 7 600, 5363, 36746, 6399 #### [facility] [place] [address] Gyroscope Repairer: Andrew Wadswroth MD Neutrophils/100 WBC (Bld) 56.9 % Normal [facility] Comment on above: Performed By: #### 7 600, 5363, 37768, 6399 #### [facility] of [place] [address] Gyroscope Repairer: Andrew Wadsworth MD Platelet mean volume (Bld) [Entitic vol] 10.1 fL Normal 7.5-12.5 [facility] Comment on above: Performed By: #### 7 600, 5363, 81988, 6399 #### [facility] of [address], [address] [place] [address] Gyroscope Repairer: Andrew Wadsworth MD Platelets (Bld) [#/Vol] 272 10*3/uL Normal 140-400 [facility] Comment on above: Performed By: #### 7 600, 5363, 75083, 6399 #### [facility] of [place] [address] Gyroscope Repairer: Andrew Wadsworth MD RBC (Bld) [#/Vol] 5.10 10*6/uL Normal 4.20-5.80 [facility] Comment on above: Performed By: #### 7 600, 5363, 30741, 6399 #### [facility] of [place] [address] Gyroscope Repairer: Andrew Wadsworth MD WBC (Bld) [#/Vol] 9.0 10*3/uL Normal 3.8-10.8 [facility] Comment on above: Performed By: #### 7 600, 5363, 62093, 6399 #### [facility] of [place] [address] Gyroscope Repairer: Andrew Wadsworth MD [facility] 08-25-2024 Albumin [Mass/Vol] 4.5 g/dL Normal 3.6-5.1 [facility] Comment on above: Performed By: #### 7 600, 5363, 92966, 6399 #### [facility] of [place] [address] Gyroscope Repairer: Andrew Wadsworth MD Albumin/Globulin [Mass ratio] 1.5 {ratio} Normal 1.0-2.5 [facility] Comment on above: Performed By: #### 7 600, 5363, 83011, 6399 #### [facility] [address], [address] [place] [address] Gyroscope Repairer: Andrew Wadsworth MD ALP [Catalytic activity/Vol] 65 U/L Normal 35-144 [facility] Comment on above: Performed By: #### 7 600, 5363, 61091, 6399 #### [facility] of [address], [address] [place] [address] Gyroscope Repairer: Andrew Wadsworth MD ALT [Catalytic activity/Vol] 35 U/L Normal 9-46 [facility] Comment on above: Performed By: #### 7 600, 5363, 99044, 6399 #### [facility] [address], [address] [place] [address] Gyroscope Repairer: Andrew Wadsworth MD AST [Catalytic activity/Vol] 22 U/L Normal 10-35 [facility] Comment on above: Performed By: #### 7 600, 5363, 40068, 6399 #### [facility] [address], [address] [place] [address] Gyroscope Repairer: Andrew Wadsworth MD Bilirubin [Mass/Vol] 1.1 mg/dL Normal 0.2-1.2 [facility] Comment on above: Performed By: #### 7 600, 5363, 54455, 6399 #### [facility] [address], [address] [place] [address] Gyroscope Repairer: Andrew Wadsworth MD BUN/CREATININE RATIO SEE NOTE: Normal 6-22 [facility] Comment on above: Result Comment: Not Reported: BUN and Creatinine are within reference range. Performed By: #### 7 600, 5363, 03983, 6399 #### [facility] [address], [address] [place] [address] Gyroscope Repairer: Andrew Wadsworth MD Calcium [Mass/Vol] 9.6 mg/dL Normal 8.6-10.3 [facility] Comment on above: Performed By: #### 7 600, 5363, 96790, 6399 #### [facility] of [place] [address] Gyroscope Repairer: Andrew Wadsworth MD Chloride [Moles/Vol] 100 mmol/L Normal 98-110 [facility] Comment on above: Performed By: #### 7 600, 5363, 07087, 6399 #### [facility] of [address], [address] [place] [address] Gyroscope Repairer: Andrew Wadsworth MD CO2 [Moles/Vol] 25 mmol/L Normal 20-32 [facility] Comment on above: Performed By: #### 7 600, 5363, 77549, 6399 #### [facility] of [place] [address] Gyroscope Repairer: Andrew Wadsworth MD Creatinine [Mass/Vol] 0.82 mg/dL Normal 0.70-1.30 [facility] Comment on above: Performed By: #### 7 600, 5363, 61687, 6399 #### [facility] [place] [address] Gyroscope Repairer: Andrew Wadsworth MD GFR/1.73 sq M.predicted among non-blacks MDRD (S/P/Bld) [Vol rate/Area] 102 mL/min/{1.73_m2} Normal > OR = 60 [facility] Comment on above: Performed By: #### 7 600, 5363, 66673, 6399 #### [facility] of [place] [address] Gyroscope Repairer: Andrew Wadsworth MD Globulin (S) [Mass/Vol] 3.0 g/dL Normal 1.9-3.7 [facility] Comment on above: Performed By: #### 7 600, 5363, 08792, 6399 #### [facility] of [place] [address] Gyroscope Repairer: Andrew Wadsworth MD Glucose [Mass/Vol] 83 mg/dL Normal 65-99 [facility] Comment on above: Result Comment: Fasting reference interval Performed By: #### 7 600, 5363, 80024, 6399 #### [facility] of [address], [address] [place] [address] Gyroscope Repairer: Andrew Wadsworth MD Potassium [Moles/Vol] 4.2 mmol/L Normal 3.5-5.3 [facility] Comment on above: Performed By: #### 7 600, 5363, 40053, 6399 #### [facility] of [address], [address] [place] [address] Gyroscope Repairer: Andrew Wadsworth MD Protein [Mass/Vol] 7.5 g/dL Normal 6.1-8.1 [facility] Comment on above: Performed By: #### 7 600, 5363, 83408, 6399 #### [facility] of [address], [address] [place] [address] Gyroscope Repairer: Anrdew Wadsworth MD Sodium [Moles/Vol] 138 mmol/L Normal 135-146 [facility] Comment on above: Performed By: #### 7 600, 5363, 15086, 6399 #### [facility] of [place] [address] Gyroscope Repairer: Andrew Wadsworth MD Urea nitrogen [Mass/Vol] 15 mg/dL Normal 7-25 [facility] Comment on above: Performed By: #### 7 600, 5363, 00465, 6399 #### [facility] of [place] [address] Gyroscope Repairer: Andrew Wadsworth MD LIPID PANEL, [facility] 08-02 Cholesterol [Mass/Vol] 220 mg/dL High <200 [facility] Comment on above: Performed By: #### 7 600, 5363, 71648, 6399 #### [facility] of [address], [address] [place] [address] Gyroscope Repairer: Andrew Wadsworth MD Cholesterol in HDL [Mass/Vol] 44 mg/dL Normal > OR = 40 [facility] Comment on above: Performed By: #### 7 600, 5363, 53924, 6399 #### [facility] [place] [address] Gyroscope Repairer: Andrew Wadsworth MD Cholesterol in LDL [Mass/Vol] 157 mg/dL High [facility] Comment on above: Result Comment: Refe rence range: <100 Desirable range <100 mg/dL for primary prevention; <70 mg/dL for patients with CHD or diabetic patients with > or = 2 CHD risk factors. LDL-C is now calculated using the Jase calculation, which is a validated novel method providing better accuracy than the Friedewald equation in the estimation of LDL-C. Rosas SS et al. DILLAN. 2013;310(19): 2428-0548 (http://education.Bit Cauldron/faq/XDH147) Performed By: #### 7 600, 5363, 45544, 6399 #### [facility] [address], [address] [place] [address] Gyroscope Repairer: Andrew Wadsworth MD Cholesterol.total/C holesterol in HDL [Mass ratio] 5.0 {ratio} High <5.0 [facility] Comment on above: Performed By: #### 7 600, 5363, 96590, 6399 #### [facility] [place] [address] Gyroscope Repairer: Andrew Wadsworth MD NON HDL CHOLESTEROL 176 mg/dL (calc) High <130 [facility] Comment on above: Result Comment: For patients with diabetes plus 1 major ASCVD risk factor, treating to a non-HDL-C goal of <100 mg/dL (LDL-C of <70 mg/dL) is considered a therapeutic option. Performed By: #### 7 600, 5363, 09979, 6399 #### [facility] [address], [address] [place] [address] Gyroscope Repairer: Andrew Wadsworth MD Triglyceride [Mass/Vol] 87 mg/dL Normal <150 [facility] Comment on above: Performed By: #### 7 600, 5363, 44732, 6399 #### [facility] [address], [address] [place] [address] Gyroscope Repairer: Andrew Wadsworth MD PSA, TOTALon 08-25-2024 PSA, TOTAL 0.94 ng/mL Normal < OR = 4.00 [facility] Comment on above: Result Comment: The total PSA value from this assay system is standardized against the WHO standard. The test result will be approximately 20% lower when compared to the equimolar-standardized total PSA (Kye Andrea). Comparison of serial PSA results should be interpreted with this fact in mind. This test was performed using the Siemens chemiluminescent method. Values obtained from different assay methods cannot be used interchangeably. PSA levels, regardless of value, should not be interpreted as absolute evidence of the presence or absence of disease. Performed By: #### 7 600, 5363, 99189, 6399 #### [facility] [address], [address] [place] [address] Gyroscope Repairer: Andrew Wadsworth MD TESTOSTERONE, TOTAL, MALES ( ADULT), IAon 08-25-2024 TESTOSTERONE, TOTAL, MALES (ADULT), IA 261 ng/dL Normal 250-827 [facility] Comment on above: Performed By: #### 7 600, 5363, 28947, 6399 #### [facility] [address], [address] [place] [address] Gyroscope Repairer: Andrew Wadsworth MD Vital Signs Date Time Vital Sign Value Performing Clinician Lucy glover 03-29-2025 14:48-0400 Body height 190.5 cm Madeline Erickson NP Work Phone: [facility] 03-29-2025 14:48-0400 Body mass index (BMI) [Ratio] 35.1 kg/m2 Madeline Erickson CRTTS Work Phone: [facility] 03-29-2025 14:48-040 Body weight 127.37 kg Madeline Erickson NP Work Phone: [facility] 03-29-2025 14:48-0400 Diastolic blood pressure 82 mm[Hg] Madeline Erickson NP Work Phone: [facility] 03-29-2025 14:48-0400 Heart rate 78 /min Madeline Garzavely CRTTS Work Phone: [facility] 03-29-2025 14:48-0400 Respiratory rate 16 /min Madeline Georgina CRTTS Work Phone: [facility] 03-29-2025 14:48-0400 SaO2% (BldA) [Mass fraction] 95 % Madeline Erickson CRTTS Work Phone: [facility] 03-29-2025 14:48-0400 Systolic blood pressure 136 mm[Hg] Madeline Erickson [facility] Work Phone: [facility] 03-14-2025 14:49-0400 Body height 190.5 cm Shana Hemmer PA Work Phone: [facility] 03-14-2025 14:49-0400 Body mass index (BMI) [Ratio] 34.8 kg/m2 Shana Hemmer PA Work Phone: [facility] 03-14-2025 14:49-0400 Body weight 126.28 kg Shana Hemmer PA Work Phone: [facility] 03-14-2025 14:49-0400 Diastolic blood pressure 88 mm[Hg] Shana Hemmer PA Work Phone: [facility] 03-14-2025 14:49-0400 Heart rate 100 /min Shana Hemmer PA Work Phone: [facility] 03-14-2025 14:49-0400 Respiratory rate 16 /min Shana Hemmer PA Work Phone: [facility] 03-14-2025 14:49-0400 SaO2% (BldA) [Mass fraction] 94 % Shana Hemmer PA Work Phone: [facility] 03-14-2025 14:49-0400 Systolic blood pressure 138 mm[Hg] Shana Hemmer PA Work Phone: [facility] 12-07-2024 14:41-0500 Body height 190.5 cm Crystal Pate [facility]TTS Work Phone: [facility] 12-07-2024 14:41-0500 Body mass index (BMI) [Ratio] 34.5 kg/m2 Crystal Pate [facility] Work Phone: [facility] 12-07-2024 14:41-0500 Body weight 125.19 kg Crystal Pate [facility] Work Phone: [facility] 12-07-2024 14:41-0500 Diastolic blood pressure 84 mm[Hg] Crystal Pate [facility]S Work Phone: [facility] 12-07-2024 14:41-0500 Heart rate 76 /min Crystal Pate [facility] Work Phone: [facility] 12-07-2024 14:41-0500 SaO2% (BldA) [Mass fraction] 96 % Crystal Pate [facility] Work Phone: [facility] 12-07-2024 14:41-0500 Systolic blood pressure 136 mm[Hg] Crystal Pate [facility]S Work Phone: [facility] 08-31-2024 14:41-0400 Body height 190.5 cm Crystal Pate [facility]S Work Phone: [facility] 08-31-2024 14:41-0400 Body mass index (BMI) [Ratio] 34.12 kg/m2 Crystal Pate [facility]S Work Phone: [facility] 08-31-2024 14:41-0400 Body weight 123.83 kg Crystal Pate [facility] Work Phone: [facility] 08-31-2024 14:41-0400 Diastolic blood pressure 82 mm[Hg] Crystal Pate [facility]S Work Phone: [facility] 08-31-2024 14:41-0400 Heart rate 86 /min Crystal Pate [facility] Work Phone: [facility] 08-31-2024 14:41-0400 SaO2% (BldA) [Mass fraction] 97 % Crystal Ptae [facility]S Work Phone: [facility] 08-31-2024 14:41-0400 Systolic blood pressure 132 mm[Hg] Crystal Pate [facility] Work Phone: [facility] 08-16-2024 15:00-0400 Body height 190.5 cm Crystal Pate [facility] Work Phone: [facility] 08-16-2024 15:00-0400 Body mass index (BMI) [Ratio] 34.37 kg/m2 Crystal Pate [facility] Work Phone: [facility] 08-16-2024 15:00-0400 Body weight 124.74 kg Crystal Pate [facility] Work Phone: [facility] 08-16-2024 15:00-0400 Diastolic blood pressure 88 mm[Hg] Crystal Pate [facility] Work Phone: [facility] 08-16-2024 15:00-0400 Heart rate 60 /min Crystal Pate [facility] Work Phone: [facility] 08-16-2024 15:00-0400 SaO2% (BldA) [Mass fraction] 98 % Crystal Pate [facility] Work Phone: [facility] 08-16-2024 15:00-0400 Systolic blood pressure 138 mm[Hg] Crystal Pate [facility]S Work Phone: [facility] Encounters Encounter Date Encounter Type Care Provider Facility Start: 03-29-2025 End: 03-29-2025 Office outpatient visit 25 minutes Madeline Erickson [facility] Work Phone: [facility] Comment on above: Jammed finger (inter phalangeal joint), initial encounter (Primary Dx); Injury of finger of right hand, initial encounter Start: 03-29-2025 End: 03-29-2025 Bamboo flowsheet Madeline Erickson [facility] Work Phone: [facility] Start: 03-29-2025 End: 03-29-2025 Bamboo flowsheet Madeline Erickson [facility] Work Phone: [facility] Start: 03-14-2025 End: 03-14-2025 ambulatory SHANA ANTHONY Not Available Start: 03-14-2025 End: 03-14-2025 Office outpatient visit 25 minutes Shana Anthony PA Work Phone: [facility] Comment on above: Primary hypertension (CMS/HCC) (Primary Dx); Androgen deficiency; Effusion of left olecranon bursa; LILLIAN-inhibitor cough; Memory changes; Decreased appetite Start: 03-14-2025 End: 03-14-2025 Bamboo YaBeamheet Shana Anthony PA Work Phone: [facility] Start: 03-14-2025 End: 03-14-2025 BamChlorogeno YaBeamheet Shana Anthony PA Work Phone: [facility] Start: 12-07-2024 End: 12-07-2024 ambulatory CRYSTAL PATE Not Available Start: 12-07-2024 End: 12-07-2024 Office outpatient visit 25 minutes Crystal Pate [facility] Work Phone: [facility] Comment on above: Hematoma of right el bow (Primary Dx); Testosterone deficiency in male; Hypertension, unspecified type (CMS/HCC); Dyslipidemia (CMS/HCC); Decreased sex drive Start: 12-07-2024 End: 12-07-2024 Bamboo flowsheet Crystal Pate [facility] Work Phone: [facility] Start: 12-07-2024 End: 12-07-2024 BamChlorogeno YaBeamheet Crystal Pate [facility] Work Phone: [facility] Start: 08-31-2024 End: 08-31-2024 Office outpatient visit 25 minutes Crystal Pate [facility] Work Phone: [facility] Comment on above: Hypertension, unspec ified type (CMS/HCC) (Primary Dx); Dyslipidemia (CMS/HCC); Testosterone deficiency in male; Decreased sex drive Start: 08-31-2024 End: 08-31-2024 ambulatory CRYSTAL PATE Not Available Start: 08-31-2024 End: 08-31-2024 Refill Shana Anthony PA Work Phone: [facility] Comment on above: Acute gout of left f oot, unspecified cause Start: 08-16-2024 End: 08-16-2024 Office outpatient visit 25 minutes Crystal Pate [facility] Work Phone: [facility] Comment on above: Hypertension, unspec ified type (CMS/HCC) (Primary Dx); Acute recurrent frontal sinusitis; Abnormal glucose tolerance test; Benign essential hypertension (CMS/HCC); Nocturia; Testosterone deficiency in male; Hypertriglyceridemia (CMS/HCC); Prostate cancer screening; Annual physical exam Start: 08-16-2024 End: 08-16-2024 Patient encounter procedure Crystal Pate [facility]S Work Phone: [facility] Start: 08-16-2024 End: 08-16-2024 ambulatory CRYSTAL PATE Not Available Plan of Treatment Date Care Activity Detail Author Start: 06-25-2027 Screening for malignant neoplasm of colon [facility] Start: 10-01-2025 Influenza vaccination [facility] Comment on above: Postponed from 07/02/2024 (Other Medical Reasons) Postponed from 07/02 (Other Medical Reasons) Start: 03-29-2025 End: 03-29-2026 XR Hand - right 3 Views XR hand 3+ views right Imaging Routine Jammed finger (interphalangeal joint), initial encounter Expected: 03/29/2025, Expires: 03/29/2026 [facility] Work Phone: Comment on above: Expected: 03/29/2025, Expires: Start: 03-14-2025 End: 03-14-2025 Patient encounter procedure 03/14/2025 2:30 PM EDT Office Visit [facility] [address] [facility] [address] [place] [id number] Crystal Pate, CRTTS [address] [facility] [address] [place] [address] [facility] Start: 03-07-2025 End: 12-08-2025 Testosterone, total and free Testosterone, total and free Lab Routine Testosterone deficiency in male Expected: 03/07/2025 (Approximate), Expires: 12/08/2025 [facility] Work Phone: Comment on above: Expected: 03/07/2025 (Approximate), Expi res: 12/08/2025 Start: 12-01-2024 End: 08-31-2025 Testosterone, total and free Testosterone, total and free Lab Routine Testosterone deficiency in male Expected: 12/01/2024 (Approximate), Expires: 08/31/2025 [facility] Work Phone: Comment on above: Expected: 12/01/2024 (Approximate), Expi res: 08/31/2025 Start: 11-30-2024 End: 11-30-2024 Patient encounter procedure 11/30/2024 3:00 PM EST Office Visit [facility] [address] [facility] [address] [place] [address] Crystal Pate, CR[facility]S [address] [place] [address] [place] [address] [facility] Start: 08-31-2024 End: 08-31-2024 Patient encounter procedure 08/31/2024 3:00 PM EDT Office Visit [facility] [address] [facility] [address] [place] [address] Crystal Pate, CR[facility]S [address] [facility] [address] [place] [address] [facility] Start: 08-16-2024 End: 08-16-2025 CBC W Auto Differential panel - Blood CBC and differential Lab Routine Hypertriglyceridemia (CMS/HCC) Annual physical exam Expected: 08/16/2024 (Approximate), Expires: 08/16/2025 [facility] Work Phone: Comment on above: Expected: 08/16/2024 (Approximate), Expi res: 08/16/2025 Start: 08-16-2024 End: 08-16-2025 Comprehensive metabolic 2000 panel - Serum or Plasma Comprehensive metabolic panel Lab Routine Abnormal glucose tolerance test Benign essential hypertension (CMS/HCC) Annual physical exam Expected: 08/16/2024 (Approximate), Expires: 08/16/2025 [facility] Comment on above: Expected: 08/16/2024 (Approximate), Expi res: 08/16/2025 Start: 08-16-2024 End: 08-16-2025 Lipid 1996 panel - Serum or Plasma Lipid panel Lab Routine Hypertriglyceridemia (CMS/HCC) Annual physical exam Expected: 08/16/2024 (Approximate), Expires: 08/16/2025 [facility] Comment on above: Expected: 08/16/2024 (Approximate), Expi res: 08/16/2025 Start: 08-16-2024 End: 08-16-2025 Prostate specific Ag [Mass/volume] in Serum or Plasma PSA Lab Routine Nocturia Annual physical exam Expected: 08/16/2024 (Approximate), Expires: 08/16/2025 [facility] Comment on above: Expected: 08/16/2024 (Approximate), Expi res: 08/16/2025 Start: 08-16-2024 End: 08-16-2025 Testosterone [Mass/volume] in Serum or Plasma Testosterone Lab Routine Testosterone deficiency in male Expected: 08/16/2024 (Approximate), Expires: 08/16/2025 [facility] Comment on above: Expected: 08/16/2024 (Approximate), Expi res: 08/16/2025 Start: 1965 Screening for malignant neoplasm of colon [facility] Payers Date Payer Category Payer Unknown [id number] 2023 Private Health Insurance [id number] 2023 Unknown [id number] 1965 Unknown [id number] 1966 Unknown [id number] 1966 Unknown [id number] [id number] 1966 Unknown [id number] Social History Date Type Detail Facility Start: 08-30-2023 Tobacco smoking stat [facility] Never smoked tobacco [facility] Start: 08-30-2023 Tobacco use and exposure Smoke less tobacco non-user [facility] Start: 08-16-2024 End: 03-29-2025 Alcoholic beverage intake Ex-drinker (finding) [facility] Start: 08-16-2024 End: 03-29-[address] of [address] [facility] Start: 08-16-2024 End: 03-29-2025 Tobacco use panel [facility] Start: 1965 Sex assigned at Not on file [facility] Functional Status Date Assessment Result Facility 03-29-2025 Patient Health Quest ionnaire 2 item (PHQ-2) [Reported] [facility] 03-14-2025 Patient Health Quest ionnaire 2 item (PHQ-2) [Reported] [facility] Clinical Notes 08-16-2024 to 03-29-2025 Madeline Erickson NP - 03/29/2025 2:30 PM DEANAN Ghotra - 03/14/2025 2:30 PM Phillip Pate NP - 12/07/2024 2:30 PM ESTPatient Trisha Pate NP - 08/31/2024 3:00 PM EDT Note Date & Type Note Facility 03-29-2025 History of Presen t illness Narrative Images from the original note were not [...] Diagnosis Date Elbow fracture Foot fracture, left 2012 Foot neuroma Right rib fracture Past Surgical [...] follow-ups on file. documented in this encounter [facility] 03-14-2025 History of Presen t illness Narrative Images from the original note were not included. HPI Med Refill Additional comments: testosterone discuss lab results Additional comments: Had testosterone lab done on 03/08 - has only had 2 doses of the 200 mg testosterone. Last edited by Marry Aguero LPN on 03/14/2025 2:46 PM. Subjective Patient ID: Markos Gilman is a 59 y.o. male who presents for low testosterone. Markos is present today for follow up testosterone. At his last o/v his testosterone was increased to 200 mg every 2 weeks. Feels like he might be a little less emotional with the higher dosage. Feels a little cloudy today, felt off for the last few days. Some odd sensations in his chest yesterday, relieved by TUMS, felt a little better this morning. Appetite has been down a bit too. Did not notice it after the first dosage of the 200 mg. Has had fluid on his left elbow for a few months now. Painful if he puts pressure on it. States he is having a hard time remembering things. He doesn't feel like he is, but his does. States he thinks he might have too much on his mind. States it is about day to day things. 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 C/o dry tickly cough that has been bothering him for a while. Thinks it might be because of the Lisinopril. Feels like something is in his throat. Current Outpatient Medications on File Prior to Visit Medication Sig Dispense Refill indomethacin (Indocin) 50 MG capsule Take 50 mg by mouth in the morning and 50 mg in the evening. Take with meals. [DISCONTINUED] indomethacin (Indocin) 50 MG capsule TAKE 1 CAPSULE BY MOUTH IN THE MORNING AND EVENING WITH MEALS 60 capsule 5 [DISCONTINUED] lisinopril 10 MG tablet TAKE 1 TABLET (10 MG) BY MOUTH DAILY. 30 tablet 3 [DISCONTINUED] testosterone cypionate (Depo-Testosterone) 100 MG/ML injection Inject 1 mL (100 mg) into the shoulder, thigh, or buttocks every 14 (fourteen) days 2 mL 2 [DISCONTINUED] testosterone cypionate (Depo-Testosterone) 200 MG/ML injection Inject [...] Substance Use Topics Alcohol use: Not Currently Family History Problem Relation Name Age of Onset Cancer Father Past Medical History: Diagnosis Date Elbow fracture Foot fracture, left 2012 Foot neuroma Right rib fracture Past Surgical History: Procedure Laterality Date FOOT NEUROMA SURGERY Right TONSILLECTOMY Visit Vitals BP 138/88 Pulse 100 Resp 16 Ht 6' 3 Wt 278 lb 6.4 oz SpO2 94% BMI 34.80 kg/m Smoking Status Never BSA 2.58 m Review of Systems Constitutional: Positive for appetite change (Decreased). Negative for chills, fatigue and fever. Respiratory: Positive for cough. Negative for shortness of breath and wheezing. Cardiovascular: Negative for chest pain, palpitations and leg swelling. Gastrointestinal: Negative for abdominal pain, constipation, diarrhea, nausea and vomiting. Musculoskeletal: Positive for joint swelling. Skin: Negative for rash. Neurological: Memory loss Objective Physical Exam Constitutional: General: He is not in acute distress. Appearance: He is obese. HENT: Head: Normocephalic and atraumatic. Eyes: General: No scleral icterus. Cardiovascular: Rate and Rhythm: Normal rate and regular rhythm. Heart sounds: No murmur heard. Pulmonary: Effort: Pulmonary effort is normal. No respiratory distress. Breath sounds: Normal breath sounds. No wheezing, rhonchi or rales. Musculoskeletal: Left elbow: Swelling present. Comments: Swelling, mild, over olecranon bursa, no abnormal warmth to touch, no erythema. Skin: General: Skin is warm and dry. Neurological: General: No focal deficit present. Mental Status: He is alert and oriented to person, place, and time. Psychiatric: Mood and Affect: Mood normal. Behavior: Behavior normal. Maximum Score Orientation 5 ( 5 ) What is the (year), (season), (date), (day), (month)? 5 ( 5 ) Where are we (state), (county), (town), (hospital), (floor)? Registration 3 ( 3 ) Name 3 Objects: One second to say each. Then ask the patient all 3 after you have said them. Give 1 point for each correct answer. Then repeat them until patient learns all 3. Count trials and record. Attention and Calculation 5 ( 5 ) Serial 7's: One point for each correct. Stop after 5 answers. Alternatively, spell world backwards. Recall 3 ( 3 ) Ask for 3 the 3 objects repeated above. Give 1 point for each correct. Language 2 ( 2 ) Name a pencil and watch (2 points). 1 ( 1 ) Repeat the following: No ifs ands or buts (1 point). 3 ( 3 ) Follow a 3-stage command: Take a paper in your right hand, fold it in half and put it on the floor (3 points). 1 ( 1 ) Read and obey the following: Close your eyes (1 point). 1 ( 1 ) Write a sentence (1 point). 1 ( 1 ) Copy design (1 point). Total Score ( 30 ) 25-30: Normal score 20-24: Suggests mild dementia 13-20: Suggests moderate dementia Less than 12: Indicates severe dementia Assessment/Plan Diagnoses and all orders for this visit: Primary hypertension (CMS/HCC) - olmesartan (BENIcar) 20 MG tablet; Take 1 tablet (20 mg) by mouth Daily BP is stable, however he has developed a cough with the Lisinopril. Change to Olmesartan as prescribed. Will continue to monitor BP. Goal is < 130/80. Androgen deficiency - testosterone cypionate (Depo-Testosterone) 200 MG/ML injection; Inject 1 mL (200 mg) into the shoulder, thigh, or buttocks every 14 (fourteen) zehra Did review risks of testosterone use, including potential cardiac complications. If any of his symptoms worsen he is to contact the office, seek immediate evaluation in ER if needed. May need to decrease the dosage to 100 mg every 2 weeks if s/e recur. Did not notice any issues after the 1st injection, only after the 2nd. Effusion of left olecranon bursa Discussed treatment options, LILLIAN wrap, Kenalog injection, referral to Ortho. He would like to try wearing an LILLIAN wrap for a while to see if the swelling improves. LILLIAN-inhibitor cough Discontinue Lisinopril at this time Cough should resolve gradually. Memory changes Reassurance given that his MMSE was normal at this time. Possibly having some difficulty remembering certain things due to the amount of projects he is working on every day. Will continue to monitor. Decreased appetite Pt has gained two pounds since last appt. Focus on adequate protein. Will monitor. Follow up in about 3 months (around 06/14/2025) for Medication Follow Up. documented in this encounter [facility] 12-07-2024 History of Presen t illness Narrative Images from the original note were not included. HPI Follow-up Additional comments: Testosterone deficiency Hyperlipidemia -- new meds started Last edited by Cira Sauer LPN on 12/07/2024 2:41 PM. Subjective Patient ID: Markos Gilman is a 59 y.o. male who presents for Results and Follow-up (Testosterone deficiency /Hyperlipidemia/-- new meds started). Pt completed labs as ordered He has NOT started the atorvastatin he is nervous about some potential side effects Taking testosterone as directed Hypertension Current Outpatient Medications on File Prior to Visit Medication Sig Dispense Refill indomethacin (Indocin) 50 MG capsule Take 1 capsule (50 mg) by mouth in the morning and 1 capsule (50 mg) in the evening. Take with meals. 60 capsule 5 lisinopril 10 MG tablet TAKE 1 TABLET (10 MG) BY MOUTH DAILY. 30 tablet 3 testosterone cypionate (Depo-Testosterone) 100 MG/ML injection Inject 1 mL (100 mg) into the shoulder, thigh, or buttocks every 14 (fourteen) days 2 mL 2 [DISCONTINUED] atorvastatin (Lipitor) 20 MG tablet Take 1 tablet (20 mg) by mouth Daily 30 tablet 2 [DISCONTINUED] lisinopril 10 MG tablet Take 1 tablet (10 mg) by mouth Daily 30 tablet 3 [DISCONTINUED] testosterone cypionate (Depo-Testosterone) 200 MG/ML injection Inject 1 mL (200 mg) into the shoulder, thigh, or buttocks every 14 (fourteen) days (Patient not taking: Reported on 08/31/2024) 2 mL 2 No current facility-administered medications on file prior to visit. I have reviewed and reconciled the history and medication list with the patient today. No Known Allergies Social History Tobacco Use Smoking status: Never Smokeless tobacco: Never Vaping Use Vaping status: Never Used Substance Use Topics Alcohol use: Not Currently Family History Problem Relation Name Age of Onset Cancer Father Past Medical History: Diagnosis Date Elbow fracture Foot fracture, left 2012 Foot neuroma Right rib fracture Past Surgical History: Procedure Laterality Date FOOT NEUROMA SURGERY Right TONSILLECTOMY Visit Vitals Ht 6' 3 BMI 34.12 kg/m Smoking Status Never BSA 2.56 m Review of Systems Constitutional: Negative for fatigue. HENT: Negative. Eyes: Negative. Cardiovascular: Negative. Gastrointestinal: Negative. Genitourinary: Negative. Musculoskeletal: Negative. Skin: Negative. Neurological: Negative. Psychiatric/Behavioral: Negative. Hematological: Negative. Endocrine: Negative. Allergic/Immunologic: Negative. Objective Physical Exam Vitals reviewed. Constitutional: Appearance: Normal appearance. HENT: Head: Normocephalic and atraumatic. Right Ear: External ear normal. Left Ear: External ear normal. Nose: Nose normal. Mouth/Throat: Mouth: Mucous membranes are moist. Pharynx: Oropharynx is clear. Eyes: Conjunctiva/sclera: Conjunctivae normal. Pulmonary: Effort: Pulmonary effort is normal. Abdominal: Palpations: Abdomen is soft. Musculoskeletal: General: Normal range of motion. Skin: General: Skin is warm and dry. Neurological: General: No focal deficit present. Mental Status: He is alert and oriented to person, place, and time. Psychiatric: Behavior: Behavior normal. Thought Content: Thought content normal. Judgment: Judgment normal. No visits with results within 2 Month(s) from this visit. Latest known visit with results is: Office Visit on 08/31/2024 Component Date Value Ref Range Status TESTOSTERONE, TOTAL, MS 11/23/2024 459 250 - 1,100 ng/dL Final Comment: For additional information, please refer to [email or web address]/ [email or web address]/ [email or web address] (This link is being provided for informational/ educational purposes only.) This test was developed and its analytical performance characteristics have been determined by [facility] [place], [place]. It has not been cleared or approved by the U.S. Food and Drug Administration. This assay has been validated pursuant to the CLIA regulations and is used for clinical purposes. TESTOSTERONE, FREE 11/23/2024 80.8 35.0 - 155.0 pg/mL Final Comment: This test was developed and its analytical performance characteristics have been determined by [facility] [place], [place]. It has not been cleared or approved by the U.S. Food and Drug Administration. This assay has been validated pursuant to the CLIA regulations and is used for clinical purposes. Assessment/Plan 1. Hematoma of right elbow (Primary) The pt reports that he fell this morning on the ice and hit his right elbow on the pavement. He denies any decrease in his ROM, does report pain at the area. We discussed continued RICE and use of medrol as well as its most common side effects. He is advised to follow up if continued pain or worsening of his symptoms. - methylPREDNISolone (Medrol Dospak) 4 MG tablets; Follow schedule on package instructions Dispense: 21 tablet; Refill: 0 2. Testosterone deficiency in male The pt was started back on testosterone cypionate at his last visit. His repeat levels have improved. He reports that he feels like he has improved. His mood has improved and he has been less tearful. We discussed an increase in his dose today. He is in agreement with this. We will increase him to 200 mg q 2 weeks. He will follow up in 3 months with repeat labs at that time. 11/23/24 TESTOSTERONE, TOTAL, MS 250 - 1,100 ng/dL 459 Previous at 261 08/24, 09/23 545 TESTOSTERONE, FREE 35.0 - 155.0 pg/mL 80.8 Previous: 08/24/24 TESTOSTERONE, TOTAL, MALES (ADULT), IA 250 - 827 ng/dL 261 - testosterone cypionate (Depo-Testosterone) 200 MG/ML injection; Inject 1 mL (200 mg) into the shoulder, thigh, or buttocks every 14 (fourteen) days Dispense: 2 mL; Refill: 2 3. Hypertension, unspecified type ([facility]) Bp 136/84 today. He continue on lisinopril as ordered. 4. Dyslipidemia (CMS/HCC) He reports that he did not start the atorvastatin. He states he does not want to take a statin at this time. We discussed his diet and increasing his exercise. He is advised to start some OTC fish oil as directed. We will do follow up labs in August. 08/24/24 CHOLESTEROL, TOTAL <200 mg/dL 220 High HDL CHOLESTEROL > OR = 40 mg/dL 44 TRIGLYCERIDES <150 mg/dL 87 LDL-CHOLESTEROL mg/dL (calc) 157 High Comment: Reference range: <100 Desirable range <100 mg/dL for primary prevention; <70 mg/dL for patients with CHD or diabetic patients with > or = 2 CHD risk factors. LDL-C is now calculated using the Jase calculation, which is a validated novel method providing better accuracy than the Friedewald equation in the estimation of LDL-C. Rosas SBILEY et al. DILLAN. 2013;310(19): 9682-5156 (http://education.Enernetics.UltiZen /faq/BCR290) CHOL/HDLC RATIO <5.0 (calc) 5.0 High NON HDL CHOLESTEROL <130 mg/dL (calc) 176 High 5. Decreased sex drive Stable. No follow-ups on file. documented in this encounter [facility] 12-07-2024 Instructions Crystal Pate NP - 12/07/2024 2:30 PM EST Increased testosterone dosage is sent today. Medrol dose pack is sent. Repeat Testosterone level ordered. documented in this encounter [facility] 08-31-2024 History of Presen t illness Narrative Images from the original note were not included. HPI Results Additional comments: labs Last edited by Cira Sauer LPN on 08/31/2024 2:41 PM. Subjective Patient ID: Markos Gilman is a 58 y.o. male who presents for Hypertension and Results (labs). Hypertension Patient is here for follow-up of elevated blood pressure. Cardiac symptoms: none. Patient denies chest pain, dyspnea, irregular heart beat, lower extremity edema, near-syncope, orthopnea, palpitations, paroxysmal nocturnal dyspnea, syncope, and tachypnea. Cardiovascular risk factors: advanced age (older than 55 for men, 65 for women), hypertension, and male gender. Hypertension Current Outpatient Medications on File Prior to Visit Medication Sig Dispense Refill lisinopril 10 MG tablet Take 1 tablet (10 mg) by mouth Daily 30 tablet 3 testosterone cypionate (Depo-Testosterone) 200 MG/ML injection Inject 1 mL (200 mg) into the shoulder, thigh, or buttocks every 14 (fourteen) days (Patient not taking: Reported on 08/31/2024) 2 mL 2 [DISCONTINUED] amoxicillin-clavulanate (Augmentin) 875-125 MG tablet Take 1 tablet (875 mg) by mouth in the morning and 1 tablet (875 mg) before bedtime. Do all this for 10 days. 20 tablet 0 [DISCONTINUED] indomethacin (Indocin) 50 MG capsule TAKE 1 CAPSULE IN THE MORNING AND THE EVENING WITH MEALS 60 capsule 2 No current facility-administered medications on file prior to visit. I have reviewed and reconciled the history and medication list with the patient today. No Known Allergies Social History Tobacco Use Smoking status: Never Smokeless tobacco: Never Vaping Use Vaping status: Never Used Substance Use Topics Alcohol use: Not Currently Family History Problem Relation Name Age of Onset Cancer Father Past Medical History: Diagnosis Date Elbow fracture Foot fracture, left 2012 Foot neuroma Right rib fracture Past Surgical History: Procedure Laterality Date FOOT NEUROMA SURGERY Right TONSILLECTOMY Visit Vitals Ht 6' 3 BMI 34.37 kg/m Smoking Status Never BSA 2.57 m Review of Systems Review of Systems Constitutional: Positive for fatigue. HENT: Negative. Eyes: Negative. Respiratory: Negative. Cardiovascular: Negative. Gastrointestinal: Negative. Genitourinary: Negative. Musculoskeletal: Negative. Skin: Negative. Neurological: Negative. Hematological: Negative. Endocrine: Negative. Allergic/Immunologic: Negative. Objective Physical Exam Vitals reviewed. Constitutional: Appearance: Normal appearance. HENT: Head: Normocephalic and atraumatic. Right Ear: External ear normal. Left Ear: External ear normal. Nose: Nose normal. Mouth/Throat: Mouth: Mucous membranes are moist. Eyes: Conjunctiva/sclera: Conjunctivae normal. Cardiovascular: Rate and Rhythm: Normal rate and regular rhythm. Heart sounds: Normal heart sounds. Pulmonary: Effort: Pulmonary effort is normal. Breath sounds: Normal breath sounds. Abdominal: Palpations: Abdomen is soft. Neurological: Mental Status: He is alert. Psychiatric: Behavior: Behavior normal. Thought Content: Thought content normal. Judgment: Judgment normal. Comments: Increased tearfulness, more tired, decreased sex drive Assessment/Plan 1. Hypertension, unspecified type (CMS/HCC) (Primary) The pt reports that his bp's have been running in the 120-130's Systolic and 70-80 diastolic. He is at 132/82 today. We will continue the current dose of lisinopril without change today. He is instructed to continue to monitor his bp at home and if he notices a consistent increase to follow up, otherwise we will follow up at 3 months. 2. Dyslipidemia (CMS/HCC) His lipid panel is discussed with him today as well as all other labs. We discussed diet and exercises. He is in agreement to try a statin. We discussed use of atorvastatin and its most common side effects. This is added today. Follow up in 3 months. - atorvastatin (Lipitor) 20 MG tablet; Take 1 tablet (20 mg) by mouth Daily Dispense: 30 tablet; Refill: 2 3. Testosterone deficiency in male His testosterone level is discussed from his most recent lab. This level has dropped from his previous. He reports increased tearfulness and overall emotional decline as well as a decreased sex drive that really bothers me . We discussed restarting the testosterone cypionate as he previously was taking. He is in agreement with this plan. We will retest his levels in 3 months. - testosterone cypionate (Depo-Testosterone) 100 MG/ML injection; Inject 1 mL (100 mg) into the shoulder, thigh, or buttocks every 14 (fourteen) days Dispense: 2 mL; Refill: 2 - Testosterone, total and free; Future - Testosterone, total and free 4. Decreased sex drive No follow-ups on file. documented in this encounter [facility] 08-31-2024 Instructions Crystal Pate NP - 08/31/2024 3:00 PM EDT Lisinopril continues at 10 mg daily, no changes. Added, atorvastatin (Lipitor) 20 MG tablet; Take 1 tablet (20 mg) by mouth Daily Dispense: 30 tablet; Refill: 2 Added, Testosterone cypionate (Depo-Testosterone) 100 MG/ML injection; Inject 1 mL (100 mg) into the shoulder, thigh, or buttocks every 14 (fourteen) days Dispense: 2 mL; Refill: 2 Added to be drawn in 3 months - Testosterone, total and free; Future - Testosterone, total and free documented in this encounter [facility] 08-31-2024 Telephone encount er Note Indomethacin sent. [facility] 08-31-2024 Miscellaneous Notes Formattin g of this note might be different from the original. Indomethacin sent. documented in this encounter [facility] 08-16-2024 History of Presen t illness Narrative Images from the original note were not included. Subjective Patient ID: Markos Gilman is a 58 y.o. male who presents for Headache. This started with a headache behind his right eye a couple weeks ago and then went to the top and back of his head Other symptoms were not feeling good, nauseated feeling, lights and sound made headache worse , some yellow drainage for past few weeks, pressure in head, some ear aches lately But this has gotten better Poss wanting testosterone again Pt BP today is 180/102 Pt BP at home was 164/117 Current Outpatient Medications on File Prior to Visit Medication Sig Dispense Refill indomethacin (Indocin) 50 MG capsule TAKE 1 CAPSULE IN THE MORNING AND THE EVENING WITH MEALS 60 capsule 2 testosterone cypionate (Depo-Testosterone) 200 MG/ML injection Inject 1 mL (200 mg) into the shoulder, thigh, or buttocks every 14 (fourteen) days 2 mL 2 No current facility-administered medications on file prior to visit. I have reviewed and reconciled the history and medication list with the patient today. No Known Allergies Social History Tobacco Use Smoking status: Never Smokeless tobacco: Never Vaping Use Vaping status: Never Used Substance Use Topics Alcohol use: Not Currently Family History Problem Relation Name Age of Onset Cancer Father Past Medical History: Diagnosis Date Elbow fracture Foot fracture, left 2011 Foot neuroma Right rib fracture Past Surgical History: Procedure Laterality Date FOOT NEUROMA SURGERY Right TONSILLECTOMY Visit Vitals Smoking Status Never Review of Systems Constitutional: Positive for fatigue. HENT: Positive for congestion, ear pain, postnasal drip, sinus pressure and sinus pain. Eyes: Negative. Respiratory: Negative. Cardiovascular: Negative. Gastrointestinal: Negative. Genitourinary: Negative. Musculoskeletal: Negative. Skin: Negative. Neurological: Positive for headaches. Psychiatric/Behavioral: Negative. Hematological: Negative. Endocrine: Negative. Allergic/Immunologic: Negative. Objective Physical Exam Constitutional: Appearance: Normal appearance. HENT: Head: Normocephalic and atraumatic. Right Ear: External ear normal. Left Ear: External ear normal. Ears: Comments: Bilateral TM's are dull in appearance, mild redness to the bilateral canals Nose: Comments: Frontal sinus pain and pressure, erythematous nasal turbinates bilaterally, purulent drainage Mouth/Throat: Mouth: Mucous membranes are moist. Pharynx: Posterior oropharyngeal erythema present. Eyes: Extraocular Movements: Extraocular movements intact. Conjunctiva/sclera: Conjunctivae normal. Pupils: Pupils are equal, round, and reactive to light. Cardiovascular: Rate and Rhythm: Normal rate and regular rhythm. Pulses: Normal pulses. Heart sounds: Normal heart sounds. Pulmonary: Effort: Pulmonary effort is normal. Breath sounds: Normal breath sounds. Abdominal: Palpations: Abdomen is soft. Musculoskeletal: General: Normal range of motion. Cervical back: Normal range of motion and neck supple. Skin: General: Skin is warm and dry. Neurological: General: No focal deficit present. Mental Status: He is alert and oriented to person, place, and time. Psychiatric: Mood and Affect: Mood normal. Behavior: Behavior normal. Thought Content: Thought content normal. Judgment: Judgment normal. Assessment/Plan 1. Hypertension, unspecified type (CMS/HCC) (Primary) Discussed diagnosis, use of lisinopril and its most common side effects. He is instructed to follow up in 1 week for bp check. - lisinopril 10 MG tablet; Take 1 tablet (10 mg) by mouth Daily Dispense: 30 tablet; Refill: 3 2. Acute recurrent frontal sinusitis Discussed diagnosis, use of augmentin and its most common side effects. Instructed to increase fluids, rest, continue as ordered and follow up if continued or worsening symptoms. - amoxicillin-clavulanate (Augmentin) 875-125 MG tablet; Take 1 tablet (875 mg) by mouth in the morning and 1 tablet (875 mg) before bedtime. Do all this for 10 days. Dispense: 20 tablet; Refill: 0 3. Abnormal glucose tolerance test - Comprehensive metabolic panel; Future - Comprehensive metabolic panel 4. Benign essential hypertension (CMS/HCC) - Comprehensive metabolic panel; Future - Comprehensive metabolic panel 5. Nocturia - PSA; Future - PSA 6. Testosterone deficiency in male - Testosterone; Future - Testosterone 7. Hypertriglyceridemia (CMS/HCC) - CBC and differential; Future - Lipid panel; Future - CBC and differential - Lipid panel 8. Prostate cancer screening 9. Annual physical exam - CBC and differential; Future - Comprehensive metabolic panel; Future - Lipid panel; Future - PSA; Future - CBC and differential - Comprehensive metabolic panel - Lipid panel - PSA No follow-ups on file. documented in this encounter [facility] 08-16-2024 Instructions Crystal Pate NP - 08/16/2024 3:00 PM EDT Augmentin added Lisinopril added documented in this encounter [facility] Evaluation note Diagnosis Hypertension, unspecified type (CMS/HCC)- Primary Acute recurrent frontal sinusitis Abnormal glucose tolerance test Impaired glucose tolerance test Benign essential hypertension (CMS/HCC) Essential hypertension, benign Nocturia Testosterone deficiency in male Hypertriglyceridemia (CMS/HCC) Pure hyperglyceridemia Prostate cancer screening Special screening for malignant neoplasm of prostate Annual physical exam Routine general medical examination at a health care facility documented in this encounter [facility]* Diagnosis Acute gout of left foot, unspecified cause documented in this encounter [facility]* Diagnosis Hypertension, unspecified type (CMS/HCC)- Primary Dyslipidemia (CMS/HCC) Other and unspecified hyperlipidemia Testosterone deficiency in male Decreased sex drive Unspecified psychosexual disorder documented in this encounter [facility] Diagnosis Hematoma of right elbow- Primary Testosterone deficiency in male Hypertension, unspecified type (CMS/HCC) Dyslipidemia (CMS/HCC) Other and unspecified hyperlipidemia Decreased sex drive Unspecified psychosexual disorder documented in this encounter [facility]* Diagnosis Primary hypertension (CMS/HCC)- Primary Unspecified essential hypertension Androgen deficiency Other testicular hypofunction Effusion of left olecranon bursa LILLIAN-inhibitor cough Memory changes Decreased appetite Anorexia documented in this encounter [facility] Diagnosis Jammed finger (interphalangeal joint), initial encounter- Primary Injury of finger of right hand, initial encounter documented in this encounter [facility] Summary Purpose Family History No Family History Records FoundNo Family History Records Found Advance Directives No Advanced Directives Records FoundNo Advanced Directives Records Found Additional Source Comments Reason for Visit (unrecogniz ed section and content) Reason Comments Headache Reason Comments Med Refill Reason Comments Hypertension Results labs Reason Comments Results Follow-up Testosterone deficie ncy Hyperlipidemia-- new meds started Reason Comments Med Refill testosterone discuss lab results Had testosterone lab done on 03/08 - has only had 2 doses of the 200 mg testosterone. Care Teams (unrecognized sec tion and content) Recycle Coordinator Relationship Specialty Start Date End Date Oral Shelby MD [address] [place] [address] PCP - General Internal Medicine 03/09/23 Recycle Coordinator Relationship Specialty Start Date End Date Oral Shelby MD [address] [place] [address] PCP - General Internal Medicine 03/09/23 Recycle Coordinator Relationship Specialty Start Date End Date Oral Shelby MD [address] [place] [address] PCP - General Internal Medicine 03/09/23 Recycle Coordinator Relationship Specialty Start Date End Date Oral Shelby MD [address] [place] [address] PCP - General Internal Medicine 03/09/23 Recycle Coordinator Relationship Specialty Start Date End Date Oral Shelby MD [address] [place] [address] PCP - General Internal Medicine 03/09/23 Recycle Coordinator Relationship Specialty Start Date End Date Oral Shelby MD [address] [place] [address] PCP - General Internal Medicine 03/09/23 Recycle Coordinator Relationship Specialty Start Date End Date Oral Shelby MD [address] [facility] [address] [place] [id number] PCP - General Internal Medicine 03/09/23 Recycle Coordinator Relationship Specialty Start Date End Date Oral Shelby MD [address] [facility] [address] [place] [id number] PCP - General Internal Medicine 03/09/23 (unrecognized sect ion and content) No Status Records FoundNo Status Records Found INFORMATION SOURCE (unrecogn ized section and content) DATE CREATED AUTHOR 03/15/2025 [facility] DATE CREATED AUTHOR AUTHOR'S ORGANIZ [facility] 03/16/2025 [facility] EPIC FOR RECORDS PERTAINING TO PATIENTS WHO ARE OR HAVE BEEN ENROLLED IN A CHEMICAL DEPENDENCY/SUBSTANCEABUSE PROGRAM, SOME INFORMATION MAY BE OMITTED. This clinical summary was aggregated from multiple sources. Caution should be exercised in using it in the provision of clinical care. This summary normalizes information from multiple sources, and as a consequence, information in this document may materially change the coding, format and clinical context of patient data. In addition, data may be omitted in some cases. CLINICAL DECISIONS SHOULD BE BASED ON THE PRIMARY CLINICAL RECORDS. [employer] provides no warranty or guarantee of the accuracy or completeness of information in this document.
== END 2025-03-30 14:46 | disposition home or self-care (01) ==
LOC: RAD 14:49
PROVIDERS: PCP Internal Medicine; Visit Provider Nurse Practitioner Family
DX: S69.90XA Unspecified injury of unspecified wrist, hand and finger(s), initial encounter (principal)
CPT/HCPCS: 73130